=== PATIENT | female | born 1945 | race Hispanic/Latino ===

== ENCOUNTER 2018-02-12 11:24 | Inpatient (IN) | payer OTHER, MEDICARE ==
--- NOTE | 2018-02-12 11:49 | ED PDOC ---
Arrival/HPI - General Time Seen by Provider: 02/12/18 11:28 Historian: Patient - History of Present Illness Narrative History of Present Illness (Text): 02/12/18 11:41 72 year old female, whose history includes 2 stents placed three years ago and a completely blocked right vertebral artery, back surgery, small intestine surgery, and volvulus, complaining of a near syncopal episode at 09:50 that lasted approximately 2 minutes. Patient was walking when she felt lightheaded, lost vision, and lowered herself down to the ground. Patient also complains of pain to her upper back, left shoulder, and across chest since waking up this morning. Patient denies any fever, chills, shortness of breath, nausea, vomiting , diarrhea, urinary symptoms, headache, or any other complaints. As per significant other, patient also had an episode of right sided weakness and right arm shaking 3 days ago that lasted 2 minutes. Time/Duration: 1-3 hours Symptom Onset: Sudden Symptom Course: Unchanged Activities at Onset: Light Context: Home Past Medical History - Provider Review Nursing Documentation Reviewed: Yes Family/Social History - Physician Review Nursing Documentation Reviewed: Yes Family/Social History: Unknown Family HX Allergies/Home Meds Allergies/Adverse Reactions: Allergies No Known Allergies Allergy (Verified 02/12/18 11:31) Home Medications: Home Meds Medication Instructions Recorded Confirmed Unobtainable 02/12/18 02/12/18 Review of Systems - Physician Review All systems were reviewed & negative as marked: Yes - Review of Systems Constitutional: absent: Fevers, Night Sweats Eyes: Vision Changes (loss of vision for 2 minutes) Respiratory: absent: SOB Cardiovascular: Chest Pain Gastrointestinal: absent: Diarrhea, Nausea, Vomiting Genitourinary Female: absent: Dysuria Musculoskeletal: Back Pain Neurological: Dizziness, Other (near syncope). absent: Headache Physical Exam Vital Signs Reviewed: Yes Vital Signs Temp Pulse Resp BP Pulse Ox 02/12/18 14:35 64 17 165/71 H 94 L 02/12/18 12:25 58 L 18 124/68 96 02/12/18 11:25 97.8 F 67 18 121/41 L 99 Temperature: Afebrile Blood Pressure: Hypotensive Pulse: Regular Respiratory Rate: Normal Appearance: Positive for: Well-Appearing, Non-Toxic, Comfortable Pain Distress: None Mental Status: Positive for: Alert and Oriented X 3 - Systems Exam Head: Present: Atraumatic, Normocephalic Pupils: Present: PERRL Extroacular Muscles: Present: EOMI Conjunctiva: Present: Normal Mouth: Present: Moist Mucous Membranes Neck: Present: Normal Range of Motion Respiratory/Chest: Present: Clear to Auscultation, Good Air Exchange. No: Respiratory Distress, Accessory Muscle Use Cardiovascular: Present: Regular Rate and Rhythm, Normal S1, S2. No: Murmurs Abdomen: No: Tenderness, Distention, Peritoneal Signs Back: Present: Normal Inspection Upper Extremity: Present: Normal Inspection. No: Cyanosis, Edema Lower Extremity: Present: Normal Inspection. No: Edema Neurological: Present: GCS=15, CN II-XII Intact, Speech Normal Skin: Present: Warm, Dry, Normal Color. No: Rashes Psychiatric: Present: Alert, Oriented x 3, Normal Insight, Normal Concentration Medical Decision Making ED Course and Treatment: 02/12/18 11:52 Impression: 72 year old female presents to the Emergency Department complaining of a near syncopal episode with associated lightheadedness, temporary loss of vision, chest pain, upper back pain, and left shoulder pain. Plan: -- CTA head and neck bundle, Head CT without contrast -- Chest xray -- EKG -- Plavix, Morphine, Zofran, and Sodium Chloride IV fluids -- Reassess and disposition Progress Notes: 02/12/18 15:08 Discussed case in detail with Dr. Dela Cruz, covering for Dr. Ivan, who wants the patient admitted to the hospitalist. 02/12/18 15:13 Discussed case in detail with Dr. Uriostegui who requested a consult with Dr. Knutson for admittance to telemetry and observation. - Lab Interpretations Lab Results: 02/12/18 12:00 02/12/18 12:00 Lab Results 02/12/18 12:00: Sodium 142, Potassium 3.8, Chloride 108 H, Carbon Dioxide 23, Anion Gap 14, BUN 13, Creatinine 0.8, Est GFR ( Amer) > 60, Est GFR (Non- Af Amer) > 60, Random Glucose 111 H, Calcium 9.3, Total Bilirubin 0.3, AST 20, ALT 24, Alkaline Phosphatase 52, Lactate Dehydrogenase 287 L, Total Creatine Kinase 51, Troponin I < 0.01, NT-Pro-B Natriuret Pep 445, Total Protein 6.5, Albumin 3.7, Globulin 2.8, Albumin/Globulin Ratio 1.3, Lipase 38 02/12/18 12:00: PT 12.4, INR 1.08 02/12/18 12:00: WBC 8.1, RBC 3.92, Hgb 12.7, Hct 37.5, MCV 95.7, MCH 32.4, MCHC 33.9, RDW 14.1, Plt Count 299, MPV 9.0, Gran % 75.0 H, Lymph % (Auto) 16.0 L, Stewart % (Auto) 7.6 H, Eos % (Auto) 0.9 L, Baso % (Auto) 0.5, Gran # 6.10, Lymph # (Auto) 1.3, Stewart # (Auto) 0.6, Eos # (Auto) 0.1, Baso # (Auto) 0.04 - RAD Interpretation Narrative RAD Interpretations (Text): 02/12/2018 12:41:33 Chest X-ray: FINDINGS: LUNGS: No focal infiltrate is appreciated. There is a small nodular density seen at the right lung base which may represent nipple shadow. No prior studies are available for comparison. Follow-up PA and lateral view of the chest would be suggested for further evaluation. Minor apical pleural changes are noted. Minor interstitial changes and/or scarring is seen at the lung bases. PLEURA: No significant pleural effusion identified, no pneumothorax apparent. CARDIOVASCULAR: Heart is normal in size. There is mild calcific atherosclerotic change of the aorta without aneurysmal dilatation. No hilar enlargement is seen. Trachea is midline. OSSEOUS STRUCTURES: No significant abnormalities. VISUALIZED UPPER ABDOMEN: Normal. OTHER FINDINGS: None. IMPRESSION: No evidence of focal alveolar infiltrate. Nonspecific mild nodular density in the right lung base which may reflect nipple shadow and confluence of overlapping densities. Follow-up PA lateral view of the chest is suggested. 02/12/2018 13:58:13 PROCEDURE: CT HEAD WITHOUT CONTRAST. FINDINGS: HEMORRHAGE: No intracranial hemorrhage. BRAIN: No mass effect or edema. Mild diffuse age related cerebral atrophy. No cortical effacement seen. Note tear tore area of infarct identified. Minor small vessel changes are suspected in the white matter tracts. VENTRICLES: Unremarkable. No hydrocephalus. CALVARIUM: Unremarkable. PARANASAL SINUSES: Minor mucosal thickening. MASTOID AIR CELLS: Unremarkable as visualized. No inflammatory changes. OTHER FINDINGS: None. IMPRESSION: No evidence of recent infarct or intracranial hemorrhage. Mild age related changes. 02/12/2018 14:31:17 PROCEDURE: CT Angiography of the neck and head with contrast FINDINGS: RIGHT CAROTID ARTERIES: Common Carotid Artery: There is normal branch pattern of the aortic arch. Right common carotid artery origin is normal. Right common carotid artery is patent to the carotid bifurcation region. Carotid Bifurcation: The right carotid bifurcation region as evidence of moderate atherosclerotic plaque with moderate luminal narrowing of the carotid bulb region. Internal Carotid Artery:There is moderate narrowing of the origin of the right internal carotid artery. Greatest luminal narrowing is 2.5 millimeters. Utilizing NASCET criteria there appears to be a 70 percent luminal narrowing. There is patent flow to the remainder of the right internal carotid artery to its intracranial region. External Carotid Artery (proximal branches): Milder atherosclerotic narrowing of the right external carotid artery. LEFT CAROTID ARTERIES: Common Carotid Artery: Mild atherosclerotic changes are seen in the left common carotid artery although it is widely patent. Carotid Bifurcation: This milder atherosclerotic plaque seen in the left carotid bulb when compare with the right. Mild luminal narrowing is seen. Internal Carotid Artery:There is mild narrowing of the origin of the right internal carotid artery. There is less than 30 percent luminal narrowing by NASCET criteria. There is patent flow of the remainder of the left internal carotid artery to its intracranial portion. External Carotid Artery (proximal branches): Mild atherosclerotic narrowing. 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 There appears to be a small amount of possible reconstitution and/or flow within the proximal right intracranial vertebral artery. Left Vertebral Artery: Left vertebral artery is patent along its entire length with mild atherosclerotic narrowing at its origin. OTHER FINDINGS: CTA of the brain There is patent flow seen within both intracranial internal carotid artery's with mild atherosclerotic plaque. 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 Basilar artery is patent, and fed primarily from the left vertebral artery with the exclusion of the right vertebral artery previously noted above. Left posterior cerebral artery and right posterior cerebral arteries appear patent. Middle cerebral arteries and anterior cerebral arteries are patent. A1 segments and A2 segments are patent. No enhancing mass lesion is seen. No appreciable aneurysm is noted. Mild mucosal changes are seen in the sinuses. Retro-orbital regions are unremarkable. Other incidental findings would include severe emphysematous and interstitial fibrotic changes of the upper lobes and lung apices with chronic pleural parenchymal changes. No intimal flap is seen in the aorta. Visualized esophagus is unremarkable. Thyroid gland is unremarkable. No appreciable adenopathy is seen in the neck. Posterior nasopharynx and tongue base region are within normal limits. Degenerative changes are seen throughout the cervical spine region with moderate posterior disc osteophyte complexes from C4-5 through C6-7. Minimal anterior listhesis is seen at C7-T1. 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 This would appear to probably represent chronic long-standing occlusion. Left vertebral artery is patent along its entire length without stenosis. Unremarkable CTA of the brain. Moderate atherosclerotic narrowing of the right carotid bulb and proximal right ICA with estimated 70 percent luminal narrowing. Radiology Orders: 02/12/18 11:52 CTA HEAD & NECK BUNDLE [CT] Stat HEAD W/O CONTRAST [CT] Stat CHEST PORTABLE [RAD] Stat - EKG Interpretation EKG Interpretation (Text): 02/12/18 11:27 EKG: Ordered, reviewed, and independently interpreted the EKG. Rate : 63 BPM Rhythm : NSR Interpretation : Short TX. Interpreted by ED Physician: Yes Type: 12 lead EKG - Medication Orders Current Medication Orders: Pantoprazole Sodium (Protonix Inj) 40 mg IVP DAILY HEATHER Discontinued Medications Clopidogrel Bisulfate (Plavix) 300 mg PO STAT STA Stop: 02/12/18 11:53 Last Admin: 02/12/18 12:12 Dose: 300 mg Sodium Chloride (Sodium Chloride 0.9%) 1,000 mls @ 999 mls/hr IV .Q1H1M STA Stop: 02/12/18 12:52 Last Admin: 02/12/18 12:12 Dose: 999 mls/hr eMAR Start Stop Document 02/12/18 12:12 SRE (Rec: 02/12/18 12:12 SRE [id number]) Intravenous Solution Start Date 02/12/18 Start Time 12:12 End Date 02/12/18 End time 13:15 Total Infusion Time 63 Morphine Sulfate (Morphine) 4 mg IVP STAT STA Stop: 02/12/18 11:53 Last Admin: 02/12/18 12:11 Dose: 4 mg MAR Pain Assessment Document 02/12/18 12:11 SRE (Rec: 02/12/18 12:12 SRE [id number]) Pain Reassessment Is this a pain reassessment? Yes Sleep Is patient sleeping during reassessment? No Presence of Pain Presence of Pain Yes IVP Administration Document 02/12/18 12:11 SRE (Rec: 02/12/18 12:12 SRE [id number]) Charges for Administration # of IVP Administrations 1 Re-Assess: MAR Pain Assessment Document 02/12/18 13:11 SRE (Rec: 02/12/18 13:25 SRE [id number]) Pain Reassessment Is this a pain reassessment? Yes Sleep Is patient sleeping during reassessment? No Presence of Pain Presence of Pain Yes Pain Scale Used Pain Scale Used Numeric Location Left, Right or Bilateral Left Pain Location Body Site Shoulder Description Description Intermittent Ondansetron HCl (Zofran Inj) 4 mg IVP STAT STA Stop: 02/12/18 11:53 Last Admin: 02/12/18 12:11 Dose: 4 mg IVP Administration Document 02/12/18 12:11 SRE (Rec: 02/12/18 12:11 SRE [id number]) Charges for Administration # of IVP Administrations 1 - Scribe Statement The provider has reviewed the documentation as recorded by the Dawson Landeros Provider Scribe Attestation: All medical record entries made by the Scribe were at my direction and personally dictated by me. I have reviewed the chart and agree that the record accurately reflects my personal performance of the history, physical exam, medical decision making, and the department course for this patient. I have also personally directed, reviewed, and agree with the discharge instructions and disposition. Disposition/Present on Arrival - Present on Arrival Any Indicators Present on Arrival: No History of DVT/PE: No History of Uncontrolled Diabetes: No Urinary Catheter: No History of Decub. Ulcer: No History Surgical Site Infection Following: None - Disposition Have Diagnosis and Disposition been Completed?: Yes Diagnosis: Near syncope, Chest pain Disposition: HOSPITALIZED Disposition Time: 15:22 Patient Plan: Admission, Telemetry Condition: FAIR Discharge Instructions (ExitCare): Chest Pain (ED)
[2018-02-12] MEDS ORDERED: Morphine 4 mg/ml ISec IVP STA (11:52)
[2018-02-12] MEDS ORDERED: Sodium Chloride 0.9% 1,000 ML IV STA (11:52)
[2018-02-12 12:19] LABS: BASO # 0.04 K/mm3 (0.0-2.0); BASO % 0.5 % (0.0-3.0); EOS # 0.1 (0.0-0.7); EOS % 0.9 % (1.5-5.0); GRAN # 6.1 (1.4-6.5); HEMOGLOBIN 12.7 g/dL (12.0-16.0); LYMPH # 1.3 (1.2-3.4); MEAN CELL VOLUME 95.7 fl (80.0-105.0); MEAN CORPUSCULAR HEMOGLOBIN 32.4 pg (25.0-35.0); MEAN CORPUSCULAR HGB CONC 33.9 g/dl (31.0-37.0); MONO # 0.6 (0.1-0.6); MONO % 7.6 % (1.0-6.0); RBC 3.92 10^6/uL (3.5-6.1); RED CELL DISTRIBUTION WIDTH 14.1 % (11.5-14.5); WHITE BLOOD COUNT 8.1 10^3/ul (4.5-11.0)
[2018-02-12 12:23] LABS: PROTHROMBIN TIME 12.4 SECONDS (9.4-12.5)
[2018-02-12 12:24] LABS: INR 1.08 (0.93-1.08)
[2018-02-12 12:27] LABS: ALB/GLOB RATIO 1.3 (1.1-1.8); ALBUMIN 3.7 g/dL (3.0-4.8); ALT/SGPT 24 U/L (7-56); AST/SGOT 20 U/L (14-36); BLOOD UREA NITROGEN 13 mg/dL (7-21); CALCIUM 9.3 mg/dL (8.4-10.5); GFR AFRICAN-AMERICAN > 60; GFR NON-AFRICAN AMERICAN > 60; LIPASE 38 U/L (23-300)
[2018-02-12 12:39] LABS: B-TYPE NATRIURETIC PEPTIDE 445 pg/mL (0-450); TROPONIN I < 0.01 ng/mL
--- NOTE | 2018-02-12 12:43 | RAD ---
HISTORY: chest pain COMPARISON: No prior. FINDINGS: LUNGS: No focal infiltrate is appreciated. There is a small nodular density seen at the right lung base which may represent nipple shadow. No prior studies are available for comparison. Follow-up PA and lateral view of the chest would be suggested for further evaluation. Minor apical pleural changes are noted. Minor interstitial changes and/or scarring is seen at the lung bases. PLEURA: No significant pleural effusion identified, no pneumothorax apparent. CARDIOVASCULAR: Heart is normal in size. There is mild calcific atherosclerotic change of the aorta without aneurysmal dilatation. No hilar enlargement is seen. Trachea is midline. OSSEOUS STRUCTURES: No significant abnormalities. VISUALIZED UPPER ABDOMEN: Normal. OTHER FINDINGS: None. IMPRESSION: No evidence of focal alveolar infiltrate. Nonspecific mild nodular density in the right lung base which may reflect nipple shadow and confluence of overlapping densities. Follow-up PA lateral view of the chest is suggested.
[2018-02-12] MEDS ORDERED: Morphine 4 mg/ml ISec ONE (13:00)
[2018-02-12] MEDS ORDERED: Iohexol 350 MG/100 ML VIAL ONE (13:18)
--- NOTE | 2018-02-12 13:59 | CT ---
PROCEDURE: CT HEAD WITHOUT CONTRAST. HISTORY: Near Sycope, Blocked Right Vertebral Artery COMPARISON: None available. TECHNIQUE: Axial computed tomography images were obtained through the head/brain without intravenous contrast. Radiation dose: Total exam DLP = 906 mGy-cm. This CT exam was performed using one or more of the following dose reduction techniques: Automated exposure control, adjustment of the mA and/or kV according to patient size, and/or use of iterative reconstruction technique. FINDINGS: HEMORRHAGE: No intracranial hemorrhage. BRAIN: No mass effect or edema. Mild diffuse age related cerebral atrophy. No cortical effacement seen. Note tear tore area of infarct identified. Minor small vessel changes are suspected in the white matter tracts. VENTRICLES: Unremarkable. No hydrocephalus. CALVARIUM: Unremarkable. PARANASAL SINUSES: Minor mucosal thickening. MASTOID AIR CELLS: Unremarkable as visualized. No inflammatory changes. OTHER FINDINGS: None. IMPRESSION: No evidence of recent infarct or intracranial hemorrhage. Mild age related changes.
--- NOTE | 2018-02-12 14:33 | CT ---
PROCEDURE: CT Angiography of the neck and head with contrast HISTORY: Near Syncope, Blocked Vertebral Artery on R COMPARISON: CT head without contrast same day. No other prior study is available TECHNIQUE: Contiguous axial images of the neck were obtained from the level of the skull-base to the superior mediastinum in the arteriographic phase of enhancement. Coronal and sagittal reformats or also generated. IV contrast dose: 100 cc Radiation Dose - DLP: 400 mGy-cm This CT exam was performed using one or more of the following dose reduction techniques: Automated exposure control, adjustment of the mA and/or kV according to patient size, and/or use of iterative reconstruction technique. FINDINGS: RIGHT CAROTID ARTERIES: Common Carotid Artery: There is normal branch pattern of the aortic arch. Right common carotid artery origin is normal. Right common carotid artery is patent to the carotid bifurcation region. Carotid Bifurcation: The right carotid bifurcation region as evidence of moderate atherosclerotic plaque with moderate luminal narrowing of the carotid bulb region. Internal Carotid Artery:There is moderate narrowing of the origin of the right internal carotid artery. Greatest luminal narrowing is 2.5 millimeters. Utilizing NASCET criteria there appears to be a 70 percent luminal narrowing. There is patent flow to the remainder of the right internal carotid artery to its intracranial region. External Carotid Artery (proximal branches): Milder atherosclerotic narrowing of the right external carotid artery. LEFT CAROTID ARTERIES: Common Carotid Artery: Mild atherosclerotic changes are seen in the left common carotid artery although it is widely patent. Carotid Bifurcation: This milder atherosclerotic plaque seen in the left carotid bulb when compare with the right. Mild luminal narrowing is seen. Internal Carotid Artery:There is mild narrowing of the origin of the right internal carotid artery. There is less than 30 percent luminal narrowing by NASCET criteria. There is patent flow of the remainder of the left internal carotid artery to its intracranial portion. External Carotid Artery (proximal branches): Mild atherosclerotic narrowing. 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 There appears to be a small amount of possible reconstitution and/or flow within the proximal right intracranial vertebral artery. Left Vertebral Artery: Left vertebral artery is patent along its entire length with mild atherosclerotic narrowing at its origin. OTHER FINDINGS: CTA of the brain There is patent flow seen within both intracranial internal carotid artery's with mild atherosclerotic plaque. 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 Basilar artery is patent, and fed primarily from the left vertebral artery with the exclusion of the right vertebral artery previously noted above. Left posterior cerebral artery and right posterior cerebral arteries appear patent. Middle cerebral arteries and anterior cerebral arteries are patent. A1 segments and A2 segments are patent. No enhancing mass lesion is seen. No appreciable aneurysm is noted. Mild mucosal changes are seen in the sinuses. Retro-orbital regions are unremarkable. Other incidental findings would include severe emphysematous and interstitial fibrotic changes of the upper lobes and lung apices with chronic pleural parenchymal changes. No intimal flap is seen in the aorta. Visualized esophagus is unremarkable. Thyroid gland is unremarkable. No appreciable adenopathy is seen in the neck. Posterior nasopharynx and tongue base region are within normal limits. Degenerative changes are seen throughout the cervical spine region with moderate posterior disc osteophyte complexes from C4-5 through C6-7. Minimal anterior listhesis is seen at C7-T1. 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 This would appear to probably represent chronic long-standing occlusion. Left vertebral artery is patent along its entire length without stenosis. Unremarkable CTA of the brain. Moderate atherosclerotic narrowing of the right carotid bulb and proximal right ICA with estimated 70 percent luminal narrowing.
--- NOTE | 2018-02-12 15:21 | CP.PCM.HP ---
History of Present Illness - History of Present Illness History of Present Illness: H&P for HospitalistElroy PGY2 This is a 72yo female with past medical history of CAD s/p 2 stents, vertebral artery stenosis (complete occlusion), carotid stenosis, volvulus s/p repair who came to ED for near syncopal episode that lasted a few minutes. Patient reports she was walking when all of a sudden she felt dizzy and had blurry vision in both eyes that resolved on its own. She did not fall or hit her head. She states that this has happened several times in the past. She denies numbness/ tingling, fever/chills, weakness, nausea/vomiting/diarrhea, or shortness of breath. She is seeing doctors at [facility] for these symptoms. Patient states its secondary to her vertebral artery stenosis and had an MRA recently. She denies taking Plavix at home. Patient said she had an echo and chemical stress test last week by her Team Guide and reports it was negative. Patient states she has chest pain that actually originates in her mid thoracic region and radiates around to her chest. The pain is intermittent and she denies trauma. Past medical history: CAD s/p 2 stents, vertebral artery stenosis (complete occlusion), carotid stenosis, volvulus Past surgical history: Volvulus repair, multiple back surgeries, appendectomy Home meds: ASA, Lipitor, Celexa, Vitamins (unknown dosages) Allergies: NKDA Social history: Lives with family. smokes 1/2 ppd x 15yrs, denies EtOH or drug use. Independent in all ADLs Family history: Mom: Cardiac- unsure what kind PMD: Dr. Owen Team Guide: Dr. Huddleston Most physicians seen at [facility] Present on Admission - Present on Admission Any Indicators Present on Admission: No Review of Systems - Review of Systems All systems: reviewed and no additional remarkable complaints except Review of Systems: 12 point ROS reviewed as per HPI Past Patient History - Past Social History Smoking Status: Heavy Smoker > 10 Cigarettes Daily Alcohol: None Drugs: Denies Home Situation {Lives}: With Family - NEUROLOGICAL Other/Comment: L vertebral stenosis - HEENT Hx Cataracts: Yes (ou) - PSYCHIATRIC Hx Anxiety: Yes Hx Substance Use: No Meds Allergies/Adverse Reactions: Allergies Allergy/AdvReac Type Severity Reaction Status Date / Time No Known Allergies Allergy Verified 02/12/18 11:31 Physical Exam - Constitutional Appears: No Acute Distress - Head Exam Head Exam: ATRAUMATIC, NORMAL INSPECTION, NORMOCEPHALIC - Eye Exam Eye Exam: Normal appearance, PERRL Pupil Exam: NORMAL ACCOMODATION, PERRL - ENT Exam ENT Exam: Mucous Membranes Moist - Neck Exam Neck exam: Positive for: Normal Inspection - Respiratory Exam Respiratory Exam: Clear to Auscultation Bilateral, NORMAL BREATHING PATTERN. absent: Rales, Rhonchi, Wheezes - Cardiovascular Exam Cardiovascular Exam: REGULAR RHYTHM, +S1, +S2. absent: Gallop, Rubs, Systolic Murmur - GI/Abdominal Exam GI & Abdominal Exam: Normal Bowel Sounds, Soft. absent: Rebound, Rigid, Tenderness - Extremities Exam Extremities exam: Positive for: normal inspection. Negative for: calf tenderness, pedal edema - Back Exam Back exam: paraspinal tenderness (on upper thoracic T3-T5) - Neurological Exam Neurological exam: Alert, CN II-XII Intact, Normal Gait, Oriented x3 - Psychiatric Exam Psychiatric exam: Normal Affect, Normal Mood - Skin Skin Exam: Dry, Intact, Normal Color, Warm Results - Vital Signs Recent Vital Signs: Last Vital Signs Temp 97.8 F 02/12/18 11:25 Pulse 64 02/12/18 14:35 Resp 17 02/12/18 14:35 BP 165/71 H 02/12/18 14:35 Pulse Ox 94 L 02/12/18 14:35 - Labs Result Diagrams: 02/12/18 12:00 02/12/18 12:00 Labs: Laboratory Results - last 24 hr 02/12/18 02/12/18 02/12/18 12:00 12:00 12:00 WBC 8.1 RBC 3.92 Hgb 12.7 Hct 37.5 MCV 95.7 MCH 32.4 MCHC 33.9 RDW 14.1 Plt Count 299 MPV 9.0 Gran % 75.0 H Lymph % (Auto) 16.0 L [place] % (Auto) 7.6 H Eos % (Auto) 0.9 L Baso % (Auto) 0.5 Gran # 6.10 Lymph # (Auto) 1.3 [place] # (Auto) 0.6 Eos # (Auto) 0.1 Baso # (Auto) 0.04 PT 12.4 INR 1.08 Sodium 142 Potassium 3.8 Chloride 108 H Carbon Dioxide 23 Anion Gap 14 BUN 13 Creatinine 0.8 Est GFR ( Amer) > 60 Est GFR (Non-Af Amer) > 60 Random Glucose 111 H Calcium 9.3 Total Bilirubin 0.3 AST 20 ALT 24 Alkaline Phosphatase 52 Lactate Dehydrogenase 287 L Total Creatine Kinase 51 Troponin I < 0.01 NT-Pro-B Natriuret Pep 445 Total Protein 6.5 Albumin 3.7 Globulin 2.8 Albumin/Globulin Ratio 1.3 Lipase 38 Assessment & Plan - Assessment and Plan (Free Text) Assessment: This is a 72yo female with past medical history of CAD s/p 2 stents, vertebral artery stenosis (complete occlusion), carotid stenosis, volvulus s/p repair who was admitted for near syncopal episode which can be secondary to vertebral artery disease. Plan: 1. Pre- syncope - secondary to vertebral artery stenosis - CTA showed occlusion of the right vertebral artery along its entire cervical length as has been reported in the patient's history. This would appear to probably represent chronic long-standing occlusion. Left vertebral artery is patent along its entire length without stenosis. Unremarkable CTA of the brain. Moderate atherosclerotic narrowing of the right carotid bulb and proximal right ICA with estimated 70 percent luminal narrowing. - Head CT showed mild chronic changes- no acute abnormalities - Neuro consulted - Patient given ASA and Plavix in ED - Continue ASA and Lipitor - Echo and stress test done last week at [facility]- will obtain full report - Cardio consulted - Patient had MRA recently at [facility] 2. Chest pain - most likely secondary to back pain, but will rule out ACS due to history of CAD - EKG showed NSR - CXR showed no active disease - Troponin <0.01- will trend - Will check TSH, Lipid panel - Will obtain CT thoracic spine - Toradol prn pain 3. Tobacco abuse - Switch Inspector on smoking cessation - Nicotine patch 4. Hx of CAD - ASA, Lipitor - Recommend starting Plavix as outpatient GI ppx: Protonix DVT ppx: SCDs Case seen, discussed and reviewed with attending Elroy Villalobos PGY2 - Date & Time Date: 02/12/18 Time: 16:12
[2018-02-12 16:23] VITALS: BMI 19.5
--- NOTE | 2018-02-12 17:04 | CP.PCM.CON ---
History of Present Illness - History of Present Illness History of Present Illness: Mrs. Tavia Johnson is a 72-year-old woman with a past medical history of CAD s/p 2 stents, vertebral artery stenosis (complete occlusion), carotid stenosis, volvulus s/p repair who came to ED for after experiencing a brief episode of light-headedness, dizziness and blurry vision, not unlike her previous symptoms , which she has been worked up for at [facility]. She was to be scheduled for a diagnostic cerebral angiogram. She is on aspirin for stroke prevention. Last week, she had an MRA done that showed right vertebral artery occlusion from the origin that appeared chronic. She follows with Dr. Mekhi Espinoza for neurointerventional and is supposed to see him next week. Review of Systems - Review of Systems All systems: reviewed and no additional remarkable complaints except Past Patient History - Past Social History Smoking Status: Light Smoker < 10 Cigarettes Daily - NEUROLOGICAL Other/Comment: L vertebral stenosis - HEENT Hx Cataracts: Yes (ou) - MUSCULOSKELETAL/RHEUMATOLOGICAL Hx Falls: No - PSYCHIATRIC Hx Anxiety: Yes - SURGICAL HISTORY Hx Appendectomy: Yes Hx Coronary Stent: Yes Hx Orthopedic Surgery: Yes (Back SX) Other/Comment: Breast implants, sm intestine SX Meds Allergies/Adverse Reactions: Allergies Allergy/AdvReac Type Severity Reaction Status Date / Time No Known Allergies Allergy Verified 02/12/18 11:31 - Medications Medications: Current Medications Aspirin (Aspirin Chewable) 81 mg PO DAILY [facility] Atorvastatin Calcium (Lipitor) 40 mg PO DIN [facility] Ibuprofen (Motrin Tab) 600 mg PO Q6H PRN PRN Reason: Pain, moderate (4-7) Ketorolac Tromethamine (Toradol) 15 mg IVP Q8H PRN PRN Reason: Pain, severe (8-10) Nicotine (Nicoderm Cq) 1 patch TD DAILY [facility] Pantoprazole Sodium (Protonix Inj) 40 mg IVP DAILY [facility] Physical Exam - Neurological Exam Neurological exam: Alert, CN II-XII Intact, Normal Gait, Oriented x3, Reflexes Normal Results - Vital Signs Recent Vital Signs: Last Vital Signs Temp 97.8 F 02/12/18 11:25 Pulse 64 02/12/18 16:17 Resp 18 02/12/18 16:17 BP 165/71 H 02/12/18 16:17 Pulse Ox 94 L 02/12/18 14:35 - Labs Result Diagrams: 02/12/18 12:00 02/12/18 12:00 Assessment & Plan (1) Near syncope Assessment and Plan: 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 I recommend the followin. Telemetry 2. CTA of the head/neck 3. Load with Plavix 300 mg once and continue dual antiplatlet therapy with aspirin 81 mg daily and Plavix 75 mg daily, follow up with Dr. Mekhi Espinoza at [facility], if medically stable for discharge. 4. Fluids with NS at 100 mL/hr for 24 hours and continue oral hydration with at least 2-3 liters of water daily. 5. Permissive HTN for the next 24 hours (only treat BP that is higher than 220/ 110 mm Hg) 6. PT/OT eval and treatment 7. Echocardiogram 8. Case management consult Thank you. Status: Acute Priority: High
[2018-02-12 18:25] LABS: URINE BILIRUBIN NEGATIVE (NEGATIVE); URINE BLOOD TRACE-INTACT (NEGATIVE); URINE GLUCOSE (UA) NEGATIVE (NEGATIVE); URINE LEUKOCYTE ESTERASE NEGATIVE Leu/uL (NEGATIVE); URINE PROTEIN NEGATIVE mg/dL (<30 mg/dL); URINE UROBILINOGEN 0.2 E.U./dL (<1 E.U./dL)
[2018-02-12 18:27] LABS: URINE APPEARANCE CLEAR (CLEAR); URINE COLOR YELLOW (YELLOW)
[2018-02-12 18:30] LABS: URINE BACTERIA FEW (NEG); URINE RBC 0 - 2 /hpf (0-2)
[2018-02-12] MEDS ORDERED: Enoxaparin 60 mg Syringe SC STA (18:41)
[2018-02-12 18:51] LABS: TROPONIN I 0.73 ng/mL
--- NOTE | 2018-02-12 22:40 | CARD ---
APPROVED REPORT EKG Measurement Heart [id number] <Conclusion> Poor data quality, interpretation may be adversely affected Sinus rhythm with short MS Otherwise normal ECG
[2018-02-13 07:36] LABS: BASO # 0.04 K/mm3 (0.0-2.0); BASO % 0.5 % (0.0-3.0); EOS # 0.2 (0.0-0.7); EOS % 2.2 % (1.5-5.0); GRAN # 4.68 (1.4-6.5); HEMOGLOBIN 13.9 g/dL (12.0-16.0); LYMPH # 2.1 (1.2-3.4); LYMPH % 27.4 % (22.0-35.0); MEAN CORPUSCULAR HEMOGLOBIN 32.6 pg (25.0-35.0); MEAN CORPUSCULAR HGB CONC 33.9 g/dl (31.0-37.0); MEAN PLATELET VOLUME 9.2 fl (7.0-11.0); MONO # 0.6 (0.1-0.6); MONO % 7.9 % (1.0-6.0); RBC 4.27 10^6/uL (3.5-6.1); RED CELL DISTRIBUTION WIDTH 14.1 % (11.5-14.5); WHITE BLOOD COUNT 7.6 10^3/ul (4.5-11.0)
[2018-02-13 07:47] LABS: ALB/GLOB RATIO 1.3 (1.1-1.8); ALBUMIN 3.9 g/dL (3.0-4.8); ALT/SGPT 20 U/L (7-56); AST/SGOT 26 U/L (14-36); BLOOD UREA NITROGEN 12 mg/dL (7-21); CALCIUM 9.3 mg/dL (8.4-10.5); GFR AFRICAN-AMERICAN > 60; GFR NON-AFRICAN AMERICAN > 60
--- NOTE | 2018-02-13 08:45 | RAD ---
HISTORY: Chest pain. COMPARISON: February 12, 2018. 12:02. FINDINGS: LUNGS: Increase pulmonary/interstitial markings compared to the prior study. PLEURA: Small bilateral pleural effusions. CARDIOVASCULAR: No significant interval change compared to the prior examination(s). OSSEOUS STRUCTURES: No significant abnormalities. VISUALIZED UPPER ABDOMEN: Normal. OTHER FINDINGS: None. IMPRESSION: Increased interstitial edema.
--- NOTE | 2018-02-13 09:12 | CT ---
PROCEDURE: CT Thoracic Spine without contrast HISTORY: back pain COMPARISON: None. TECHNIQUE: Axial computed tomography images were obtained of the thoracic spine without intravenous contrast. Coronal and sagittal reformatted images were created and reviewed. Radiation dose: Total exam DLP = 241 mGy-cm. This CT exam was performed using one or more of the following dose reduction techniques: Automated exposure control, adjustment of the mA and/or kV according to patient size, and/or use of iterative reconstruction technique. FINDINGS: VERTEBRAE: Unremarkable. No fracture. Normal alignment. DISCS/SPINAL CANAL/NEURAL FORAMINA: Within the limits of the CT technique, no disc herniation seen. No central canal or neural foraminal stenosis.. PARASPINAL SOFT TISSUES: Unremarkable. Severe emphysematous changes are seen. There is some focal consolidation at the left lung base. Evaluation of the chest is incomplete on this thoracic spine exam. A dedicated chest CT may be indicated OTHER FINDINGS: The report concurs with the preliminary [facility] report. IMPRESSION: No acute vertebral compression fracture
[2018-02-13] MEDS ORDERED: Lidocaine 2% Inj (20ml) ONE (09:30)
[2018-02-13] MEDS ORDERED: Verapamil 2 ML ONE (09:31)
[2018-02-13] MEDS ORDERED: Nitroglycerin 50mg in D5W 50 MG/250 ML BOTTLE IV ONE (09:31)
[2018-02-13] MEDS ORDERED: Phenylephrine 10 mg/ml Inj ONE (09:31)
[2018-02-13] MEDS ORDERED: Iohexol 350mgl/ml 50 ML ONE (09:31)
[2018-02-13] MEDS ORDERED: Midazolam 2 MG/2 ML VIAL ONE ×2 (09:51→10:42)
[2018-02-13] MEDS ORDERED: Eptifibatide 20 mg/10mL Inj IVP ONE (10:25)
[2018-02-13] MEDS ORDERED: Iohexol 350 MG/100 ML VIAL ONE (10:37)
[2018-02-13] MEDS ORDERED: Morphine 4 mg/ml ISec ONE (10:46)
[2018-02-13] MEDS ORDERED: Sodium Chloride 0.9% 1,000 ML IV SCH (11:15)
--- NOTE | 2018-02-13 12:07 | CPOSTOP ---
DATE: 02/13/2018 PHYSICIAN: Luis Antonio Del Angel MD. BINGO CALLER: KEYANA Amezquita. TYPE OF ANESTHESIA USED: Moderate conscious sedation. Total dose given 3 mg of Versed, 100 of fentanyl, and 2 of morphine periodically, started at 1 mg of Versed, 50 of fentanyl. PRE-PROCEDURE DIAGNOSES: Unstable angina, [id number] myocardial infarction. PROCEDURES PERFORMED: 1. Left heart catheterization. 2. Stenting of circumflex, dominant. FINDINGS: Circumflex, dominant distal 90% to 95% stenosis, patent stent in LAD, moderate disease in RCA nondominant. FINAL DIAGNOSIS: Single-vessel critical disease, circumflex. POSTPROCEDURE CONDITION: Stable, good. VASCULAR ACCESS SITE: Left radial. CLOSURE DEVICE: TR band. RADIATION DOSE TOTAL: 8209.96 mGy unit total. FLUORO TIME: 6.9 minutes. RECOMMENDATIONS: Mandatory aspirin and Plavix for one year. Luis Antonio Del Angel MD
--- NOTE | 2018-02-13 12:57 | CON ---
DATE: 02/13/2018 REASON FOR THE CONSULTATION: Followup [id number] myocardial infarction, acute coronary syndrome, history of coronary artery disease. Admitted with near syncope and chest pain and positive troponin. BRIEF CLINICAL HISTORY: This is a 72-year-old female with past medical history significant for coronary artery disease, status post stent 4 years ago at [facility]; history of dizziness; history of near syncope; history of vertebral artery stenosis, complete occlusion, being followed at [facility]. While the patient was discharged, has a near syncopal episode. While the patient came to the emergency room with severe chest pain and positive troponin, EKG remains normal. Denies any episode of chest pain now, but she says yesterday she had a very bad chest pain. She felt that she was going to pass out. PAST MEDICAL HISTORY: Past history significant for coronary artery disease, status post 2 stents in the artery; history of vertebral artery stenosis, history of complete occlusion; history of carotid artery stenosis. PAST SURGICAL HISTORY: Significant for volvulus repair, multiple back surgery, appendectomy. SOCIAL HISTORY: Active tobacco abuse. Used to smoke 2 packs a day, but now cut down to half a pack a day. Denies any history of alcohol abuse. Denies any history of any substance abuse. Lives with . CURRENT MEDICATIONS: The patient is taking aspirin, Lipitor, Celexa, vitamins and was taking Plavix, but stopped a year or 2 years ago. REVIEW OF SYSTEMS: As per HPI. PHYSICAL EXAMINATION: As follows, VITAL SIGNS: Temperature afebrile, blood pressure 120/65. HEENT: PERRLA, intact. NECK: Supple. No carotid bruit. No thyromegaly. CHEST: Clear to auscultation. HEART: S1 and S2 regular. ABDOMEN: Soft. EXTREMITIES: Clubbing and cyanosis negative. LABORATORY DATA: Blood workup as follows; WBC 7.6, hemoglobin 13.9, hematocrit 41, platelet count 319. Chemistry shows sodium 141, potassium 4, chloride 107, carbon dioxide 25, anion gap of 13, BUN 12, creatinine 0.8. EKG shows normal sinus rhythm. Acute ST-T changes noted. Troponin 0.73, then 0.58 and 0.48. IMPRESSION: Acute coronary syndrome, [id number] myocardial infarction, coronary artery disease, history of peripheral arterial disease, history of coronary artery occlusion. RECOMMENDATION: We will get echo. We will get cardiac catheterization. Risks, benefits and alternatives discussed with the patient. Proceed for cardiac catheterization. Last night, 300 mg of Plavix was given. We will give this morning Plavix 75 mg daily and aspirin and we will keep n.p.o. for cardiac catheterization. Further recommendations depends on cardiac catheterization. We will also get echo and also get lipid profile, TSH. Also, we will get carotid artery duplex. We will follow with you. Thank you, Dr. Uriostegui for providing us the opportunity in taking care of the patient, Zahraa Squires Alex. Luis Antonio Del Angel MD
--- NOTE | 2018-02-13 13:09 | CP.PCM.PN ---
<Fred Courtney - Last Filed: 02/13/18 13:06> Subjective - Date & Time of Evaluation Date of Evaluation: 02/13/18 Time of Evaluation: 13:06 - Subjective Subjective: Medicine Progress Note Pt seen and examined at bedside. No acute overnight events. Pt states that her symptoms have resolved. No dizziness, SAVAGE, or CP. Pt states that she is already follow doctors at [facility] for her dizziness due to vertebral artery stenosis. Pt denies CP, SOB, n/v/d, abdominal pain, fever, chills, SAVAGE, or dizziness. Objective - Vital Signs/Intake and Output Vital Signs (last 24 hours): Temp Pulse Resp BP Pulse Ox 97.2 F L 54 L 18 144/65 95 02/13/18 12:00 02/13/18 12:00 02/13/18 12:00 02/13/18 12:00 02/13/18 06:00 Intake and Output: 02/13/18 02/13/18 06:59 18:59 Intake Total 0 Balance 0 - Medications Medications: Current Medications Aspirin (Aspirin Chewable) 81 mg PO DAILY [facility] Last Admin: 02/13/18 10:43 Dose: Not Given Atorvastatin Calcium (Lipitor) 40 mg PO DIN [facility] Last Admin: 02/12/18 17:54 Dose: 40 mg Clopidogrel Bisulfate (Plavix) 75 mg PO DAILY [facility] Sodium Chloride (Sodium Chloride 0.9%) 1,000 mls @ 100 mls/hr IV .Q10H [facility] Stop: 02/13/18 18:00 Ibuprofen (Motrin Tab) 600 mg PO Q6H PRN PRN Reason: Pain, moderate (4-7) Ketorolac Tromethamine (Toradol) 15 mg IVP Q8H PRN PRN Reason: Pain, severe (8-10) Last Admin: 02/12/18 22:07 Dose: 15 mg Metoprolol Tartrate (Lopressor) 25 mg PO BID [facility] Nicotine (Nicoderm Cq) 1 patch TD DAILY [facility] Last Admin: 02/13/18 10:44 Dose: Not Given Pantoprazole Sodium (Protonix Inj) 40 mg IVP DAILY [facility] Last Admin: 02/13/18 10:44 Dose: Not Given - Labs Labs: 02/13/18 07:00 02/13/18 07:00 PT 12.4 SECONDS (9.4-12.5) 02/12/18 12:00 INR 1.08 (0.93-1.08) 02/12/18 12:00 - Constitutional Appears: No Acute Distress - Head Exam Head Exam: NORMAL INSPECTION - Eye Exam Eye Exam: Normal appearance - ENT Exam ENT Exam: Mucous Membranes Moist - Neck Exam Neck Exam: Normal Inspection - Respiratory Exam Respiratory Exam: Clear to Ausculation Bilateral. absent: Rales, Rhonchi, Wheezes - Cardiovascular Exam Cardiovascular Exam: RRR, +S1, +S2. absent: Gallop, Rubs, Murmur - GI/Abdominal Exam GI & Abdominal Exam: Soft. absent: Distended, Guarding, Tenderness, Rebound - Rectal Exam Rectal Exam: NORMAL INSPECTION - Extremities Exam Extremities Exam: Full ROM - Back Exam Back Exam: NORMAL INSPECTION - Neurological Exam Neurological Exam: Alert, Awake, CN II-XII Intact, Oriented x3 - Psychiatric Exam Psychiatric exam: Normal Affect, Normal Mood - Skin Skin Exam: Dry, Intact, Normal Color, Warm Assessment and Plan - Assessment and Plan (Free Text) Assessment: This is a 72yo female with past medical history of CAD s/p 2 stents, vertebral artery stenosis (complete occlusion), carotid stenosis, volvulus s/p repair who was admitted for near syncopal episode which can be secondary to vertebral artery disease. Plan: 1. Pre- syncope - secondary to vertebral artery stenosis - CTA showed occlusion of the right vertebral artery along its entire cervical length as has been reported in the patient's history. This would appear to probably represent chronic long-standing occlusion. Left vertebral artery is patent along its entire length without stenosis. Unremarkable CTA of the brain. Moderate atherosclerotic narrowing of the right carotid bulb and proximal right ICA with estimated 70 percent luminal narrowing. - Head CT showed mild chronic changes- no acute abnormalities - Neuro consulted Dual antiplatelet therapy Permissive HTN Recommends outpatient follow up with Dr. Mekhi Espinoza when medically stable for DC - F/u echo - Cardio consulted 2. 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 Hx of CAD - ASA, Lipitor, Lopressor, Plavix GI ppx: Protonix DVT ppx: SCDs Pt seen and discussed in detail with Dr. Espinal. Brenton Courtney, PGY1 <Duglas Espinal - Last Filed: 02/14/18 15:27> Objective - Vital Signs/Intake and Output Vital Signs (last 24 hours): Temp Pulse Resp BP Pulse Ox 97.8 F 63 20 146/66 97 02/14/18 06:00 02/14/18 10:00 02/14/18 06:00 02/14/18 09:22 02/14/18 06:00 - Labs Labs: 02/14/18 05:30 02/14/18 05:30 PT 12.4 SECONDS (9.4-12.5) 02/12/18 12:00 INR 1.08 (0.93-1.08) 02/12/18 12:00 Attending/Attestation - Attestation I have personally seen and examined this patient.: Yes I have fully participated in the care of the patient.: Yes I have reviewed all pertinent clinical information, including history, physical exam and plan: Yes Notes (Text): 02/14/18 15:26 attending note; Patient seen and examined with resident. This is a 72 year old female with past medical history of CAD s/p 2 stents, vertebral artery stenosis (complete occlusion), carotid stenosis, volvulus s/p repair who was admitted for near syncopal episode which can be secondary to vertebral artery disease. CT headis negative and CTA showed vertebral occlusion unchanged. Patient follows up with neurologist at [facility]. Non-ST elevation SD; status post circumflex stent placement. Patient needs aspirin and Plavix for atleast 1 year. active smoking; smoking cessation is strongly advised. Possible discharge home if stable.
--- NOTE | 2018-02-13 14:53 | CARD ---
APPROVED REPORT Procedure(s) performed: Left Heart Catheterization PTCA with Stenting of Mid circumflex with SILVANA HISTORY The patient is a 72 year-old female with a history of : previous diagnostic cath, tobacco history() : The patient is a current smoker , previous PCI (The PCI date was 10/17/2013), dyslipidemia , Hx of Carotid artery stenosis being Followe at [facility], admitted with near syncope and ACS. INDICATION The indication(s) include : unstable angina , non-STEMI , chest pain, dyspnea, syncope. CASE TECHNIQUE The patient was brought urgently to the Cardiac Catheterization Laboratory in a fasting state and was prepped and draped in a sterile manner. The left wrist was infiltrated with 2% Lidocaine subcutaneous anesthesia. A sheath was inserted into the left radial artery without difficulty. Coronary angiography was performed using coronary diagnostic catheters. The left coronary system was accessed and visualized with a Diagnostic ,5F JL 4 CATH DXT 100 CM catheter. The right coronary system was accessed and visualized with a Diagnostic , 5F JR 4 CATH DXT 100 CM catheter. The left ventricle was accessed and visualized with a 5F PIGTAIL 145 CATH DXT 110 CM catheter. Left ventricular/Aortic Valve gradient assessed on pullback. Left ventriculogram was performed in GRAHAM projection. Closure device was deployed with a Fr TR Band (Regular) without any complications. The patient tolerated the procedure well and there were no complications associated with the procedure. Vessel Analysis The patient's coronary anatomy is left dominant. The left main coronary artery is a medium size vessel with diffuse calcification noted throughout this vessel and without significant stenosis. The left main bifurcates to the left anterior descending and circumflex. The left anterior descending artery is a medium size vessel with diffuse calcification noted throughout this vessel and without significant stenosis. patent The first diagonal branch is a small size vessel with diffuse calcification noted throughout this vessel and without significant stenosis. The second diagonal branch is a small size vessel with diffuse calcification noted throughout this vessel and without significant stenosis. The circumflex artery is a large size vessel with diffuse calcification noted throughout this vessel and with significant stenosis. There is a 90-95% stenosis in the distal segment. The first obtuse marginal branch is a small size vessel with diffuse calcification noted throughout this vessel and without significant stenosis. The second obtuse marginal branch is a medium size vessel with diffuse calcification noted throughout this vessel and without significant stenosis. The third obtuse marginal branch is a medium size vessel with diffuse calcification noted throughout this vessel and without significant stenosis. The left posterior descending artery is a medium size vessel with diffuse calcification noted throughout this vessel and without significant stenosis. The right coronary artery is a medium size vessel with diffuse calcification noted throughout this vessel and without significant stenosis. non dominant There is a 40-50% stenosis in the mid segment. Left Ventricle The left ventricle is normal in size with normal contractility. The left ventricular ejection fraction is estimated to be 60-65%. The left ventricular end diastolic pressure is 18 mmHg. There was no gradient across the aortic valve upon pullback. PCI Technique Lesion Anticoagulation was achieved with Heparin. Percutaneous coronary intervention was performed on the distal circumflex artery segment. The lesion stenosis prior to intervention was 90-95% with STAN 2 flow. A 6 Fr JL 3.5 Guide Catheter was used to engage the ostium. A Luge 182 Interventional Guidewire was used to cross the lesion. BALLOON DILATION A Balloon catheter 2.5 x 6 mm Sprinter RX was inserted and inflated up to 15.00atm for 10seconds. STENT DEPLOYMENT A drug-eluting stent STENT RESOLUTE JUAN 2.75 X 08 was inserted and inflated up to 15.00atm for 10seconds. POST STENT DEPLOYMENT BALLOON DILATION A Balloon catheter 2.5 x 6 mm Sprinter RX was inserted and inflated up to juanita for seconds. Final angiography reveals 0 % stenosis with STAN 3 flow. Conclusion Single vessel CAD involving distal dominant Cx 90-95% stenosis. Patent stent in Mid LAD Moderate Diz 40-50% in Mid non Dominant RCA. Preserved LV Fx. EF-60-65%, EDP-18 mmof Hg. Successful PTCA with SILVANA of Distal Circumflex Recommendations Smoking Cessation Cardiac Rehabilitation ReferralDaily ASA with Plavix for at least one year Aggressive Medical TherapyCardiac Risk Reduction Program CC; Dr.Michael Neida MD/ Britni Uriostegui MD
[2018-02-13 16:38] LABS: BASO # 0.05 K/mm3 (0.0-2.0); BASO % 0.8 % (0.0-3.0); EOS # 0.1 (0.0-0.7); EOS % 1.5 % (1.5-5.0); GRAN # 4.09 (1.4-6.5); GRAN % 61.3 % (50.0-68.0); LYMPH # 1.9 (1.2-3.4); LYMPH % 27.8 % (22.0-35.0); MEAN CELL VOLUME 95.8 fl (80.0-105.0); MEAN CORPUSCULAR HEMOGLOBIN 32.2 pg (25.0-35.0); MEAN CORPUSCULAR HGB CONC 33.6 g/dl (31.0-37.0); MONO # 0.6 (0.1-0.6); MONO % 8.6 % (1.0-6.0); RBC 4.04 10^6/uL (3.5-6.1); WHITE BLOOD COUNT 6.7 10^3/ul (4.5-11.0)
[2018-02-13 16:44] LABS: BLOOD UREA NITROGEN 13 mg/dL (7-21); GFR AFRICAN-AMERICAN > 60; GFR NON-AFRICAN AMERICAN 54
[2018-02-13] MEDS ORDERED: Bacitracin 500 Units/gm Oint Foilpak UD ONE (17:00)
--- NOTE | 2018-02-13 19:20 | CP.PCM.PN ---
Subjective - Date & Time of Evaluation Date of Evaluation: 02/13/18 Time of Evaluation: 19:11 - Subjective Subjective: PGY-[address] Espinal CC: "Dont want to go home" Ms Squires, 72yo female, with past medical history of CAD s/p 2 stents, vertebral artery stenosis (complete occlusion), carotid stenosis, volvulus s/p repair who was admitted for near syncopal episode which can be secondary to vertebral artery disease. She had NSTEMI and received a SILVANA stent via L radial access. Pt states that wanted her to go home tonight but she didn't feel ready. Pt states that she is anxious because she did not get the nicoderm patch, because I was asking her why she was anxious, because she didn't like to be questioned (mentioning that her son was a psychiatrist), because she wants anxiety medicine, and because she didnt get any answers for 2 hours, and she just had a procedure today. Denies SAVAGE, CP, SOB, palpitation, N/V. Pt states that she had never tried any psych meds or xanax before. When I re-interview pt , she states that she had tried xanax before in prior hospital stay. O: VS stable GEN: Upset, frustrated HEENT: Moist mucosa Card: regular s1 s2 Pulm: CTA b/l Ext: L radial pulse intact. 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 s/r/d/w Dr. Espinal Objective - Vital Signs/Intake and Output Vital Signs (last 24 hours): Temp Pulse Resp BP Pulse Ox 97.2 F L 73 18 164/70 H 95 02/13/18 12:00 02/13/18 18:00 02/13/18 16:27 02/13/18 17:04 02/13/18 06:00 - Medications Medications: Current Medications Aspirin (Aspirin Chewable) 81 mg PO DAILY [facility] Last Admin: 02/13/18 10:43 Dose: Not Given Atorvastatin Calcium (Lipitor) 40 mg PO DIN [facility] Last Admin: 02/13/18 17:04 Dose: 40 mg Clopidogrel Bisulfate (Plavix) 75 mg PO DAILY [facility] Ibuprofen (Motrin Tab) 600 mg PO Q6H PRN PRN Reason: Pain, moderate (4-7) Ketorolac Tromethamine (Toradol) 15 mg IVP Q8H PRN PRN Reason: Pain, severe (8-10) Last Admin: 02/12/18 22:07 Dose: 15 mg Metoprolol Tartrate (Lopressor) 25 mg PO BID [facility] Last Admin: 02/13/18 17:04 Dose: 25 mg Nicotine (Nicoderm Cq) 1 patch TD DAILY [facility] Last Admin: 02/13/18 18:52 Dose: 1 patch Pantoprazole Sodium (Protonix Inj) 40 mg IVP DAILY [facility] Last Admin: 02/13/18 10:44 Dose: Not Given - Labs Labs: 02/13/18 16:32 02/13/18 16:32 PT 12.4 SECONDS (9.4-12.5) 02/12/18 12:00 INR 1.08 (0.93-1.08) 02/12/18 12:00
--- NOTE | 2018-02-13 20:22 | CARD ---
APPROVED REPORT EKG Measurement Heart [id number] <Conclusion> Sinus bradycardia Possible Left atrial enlargement Borderline ECG
[2018-02-14 06:20] LABS: BASO # 0.04 K/mm3 (0.0-2.0); BASO % 0.5 % (0.0-3.0); EOS # 0.1 (0.0-0.7); EOS % 1.3 % (1.5-5.0); GRAN # 5.95 (1.4-6.5); GRAN % 68.8 % (50.0-68.0); HEMOGLOBIN 13.9 g/dL (12.0-16.0); LYMPH # 1.9 (1.2-3.4); LYMPH % 21.7 % (22.0-35.0); MEAN CELL VOLUME 95.1 fl (80.0-105.0); MEAN CORPUSCULAR HEMOGLOBIN 32.5 pg (25.0-35.0); MEAN CORPUSCULAR HGB CONC 34.2 g/dl (31.0-37.0); MEAN PLATELET VOLUME 9.3 fl (7.0-11.0); MONO # 0.7 (0.1-0.6); MONO % 7.7 % (1.0-6.0); RBC 4.28 10^6/uL (3.5-6.1); WHITE BLOOD COUNT 8.7 10^3/ul (4.5-11.0)
[2018-02-14 06:56] VITALS: RESP 20; TEMP 97.8; O2SAT 97
[2018-02-14 07:46] LABS: ALB/GLOB RATIO 1.3 (1.1-1.8); ALBUMIN 3.9 g/dL (3.0-4.8); ALT/SGPT 26 U/L (7-56); AST/SGOT 28 U/L (14-36); BLOOD UREA NITROGEN 14 mg/dL (7-21); CALCIUM 9.1 mg/dL (8.4-10.5); GFR AFRICAN-AMERICAN > 60; GFR NON-AFRICAN AMERICAN > 60
--- NOTE | 2018-02-14 07:46 | CP.PCM.DIS ---
<Fred Courtney - Last Filed: 02/14/18 11:46> Provider - Provider Date of Admission: 02/13/18 15:09 Attending physician: Shirin Uriostegui MD Consults: Cardio: Bean Neuro: Korya Time Spent in preparation of Discharge (in minutes): 45 Hospital Course - Lab Results Lab Results: Most Recent Lab Values WBC 8.7 10^3/ul (4.5-11.0) D 02/14/18 05:30 RBC 4.28 10^6/uL (3.5-6.1) 02/14/18 05:30 Hgb 13.9 g/dL (12.0-16.0) 02/14/18 05:30 Hct 40.7 % (36.0-48.0) 02/14/18 05:30 MCV 95.1 fl (80.0-105.0) 02/14/18 05:30 MCH 32.5 pg (25.0-35.0) 02/14/18 05:30 MCHC 34.2 g/dl (31.0-37.0) 02/14/18 05:30 RDW 14.0 % (11.5-14.5) 02/14/18 05:30 Plt Count 296 10^3/uL (120.0-450.0) 02/14/18 05:30 MPV 9.3 fl (7.0-11.0) 02/14/18 05:30 Gran % 68.8 % (50.0-68.0) H 02/14/18 05:30 Lymph % (Auto) 21.7 % (22.0-35.0) L 02/14/18 05:30 [place] % (Auto) 7.7 % (1.0-6.0) H 02/14/18 05:30 Eos % (Auto) 1.3 % (1.5-5.0) L 02/14/18 05:30 Baso % (Auto) 0.5 % (0.0-3.0) 02/14/18 05:30 Gran # 5.95 (1.4-6.5) 02/14/18 05:30 Lymph # (Auto) 1.9 (1.2-3.4) 02/14/18 05:30 [place] # (Auto) 0.7 (0.1-0.6) H 02/14/18 05:30 Eos # (Auto) 0.1 (0.0-0.7) 02/14/18 05:30 Baso # (Auto) 0.04 K/mm3 (0.0-2.0) 02/14/18 05:30 PT 12.4 SECONDS (9.4-12.5) 02/12/18 12:00 INR 1.08 (0.93-1.08) 02/12/18 12:00 Sodium 139 mmol/L (132-148) 02/13/18 16:32 Potassium 3.6 mmol/L (3.6-5.0) 02/13/18 16:32 Chloride 106 mmol/L (98-107) 02/13/18 16:32 Carbon Dioxide 23 mmol/L (21-33) 02/13/18 16:32 Anion Gap 14 (10-20) 02/13/18 16:32 BUN 13 mg/dL (7-21) 02/13/18 16:32 Creatinine 1.0 mg/dl (0.7-1.2) 02/13/18 16:32 Est GFR ( Amer) > 60 02/13/18 16:32 Est GFR (Non-Af Amer) 54 02/13/18 16:32 Random Glucose 105 mg/dL (70-110) 02/13/18 16:32 Hemoglobin A1c 5.7 % (4.2-6.5) 02/12/18 17:55 Calcium 9.0 mg/dL (8.4-10.5) 02/13/18 16:32 Total Bilirubin 0.2 mg/dL (0.2-1.3) 02/13/18 07:00 AST 26 U/L (14-36) 02/13/18 07:00 ALT 20 U/L (7-56) 02/13/18 07:00 Alkaline Phosphatase 62 U/L (38-126) 02/13/18 07:00 Lactate Dehydrogenase 287 U/L (333-699) L 02/12/18 12:00 Total Creatine Kinase 51 U/L (35-230) 02/12/18 12:00 Troponin I 0.48 ng/mL H* 02/13/18 02:50 NT-Pro-B Natriuret Pep 445 pg/mL (0-450) 02/12/18 12:00 Total Protein 6.9 g/dL (5.8-8.3) 02/13/18 07:00 Albumin 3.9 g/dL (3.0-4.8) 02/13/18 07:00 Globulin 3.0 gm/dL 02/13/18 07:00 Albumin/Globulin Ratio 1.3 (1.1-1.8) 02/13/18 07:00 Triglycerides 66 mg/dL (35-160) 02/12/18 17:50 Cholesterol 121 mg/dL (130-200) L 02/12/18 17:50 LDL Cholesterol Direct 45 mg/dL (0-129) 02/12/18 17:50 HDL Cholesterol 60 mg/dL (29-60) 02/12/18 17:50 Lipase 38 U/L (23-300) 02/12/18 12:00 TSH 3rd Generation 1.04 mIU/mL (0.46-4.68) 02/12/18 17:55 Urine Color Yellow (YELLOW) 02/12/18 18:10 Urine Appearance Clear (CLEAR) 02/12/18 18:10 Urine pH 6.0 (4.7-8.0) 02/12/18 18:10 Ur Specific [place] 1.010 (1.005-1.035) 02/12/18 18:10 Urine Protein Negative mg/dL (<30 mg/dL) 02/12/18 18:10 Urine Glucose (UA) Negative mg/dL (NEGATIVE) 02/12/18 18:10 Urine Ketones Negative mg/dL (NEGATIVE) 02/12/18 18:10 Urine Blood Trace-intact (NEGATIVE) H 02/12/18 18:10 Urine Nitrate Negative (NEGATIVE) 02/12/18 18:10 Urine Bilirubin Negative (NEGATIVE) 02/12/18 18:10 Urine Urobilinogen 0.2 E.U./dL (<1 E.U./dL) 02/12/18 18:10 Ur Leukocyte Esterase Negative Jan/uL (NEGATIVE) 02/12/18 18:10 Urine RBC 0 - 2 /hpf (0-2) 02/12/18 18:10 Urine WBC 2 - 5 /hpf (0-6) 02/12/18 18:10 Ur Epithelial Cells 3 - 4 /hpf (0-5) 02/12/18 18:10 Urine Bacteria Few (NEG) 02/12/18 18:10 - Hospital Course Hospital Course: Patient is a 72yo female with past medical history of CAD s/p 2 stents, vertebral artery stenosis (complete occlusion), carotid stenosis, volvulus s/p repair who came to ED for near syncopal episode that lasted a few minutes. Patient has had several occurrences in the past. She is currently being followed by doctors at [facility] for these symptoms secondary to right vertebral artery stenosis. Of note, patient had recent stress test and echo at [facility], which were normal according to patient. In the ED, head CT showed mild chronic changes , but no acute abnormalities. CTA occlusion of the right vertebral artery along its entire cervical length as has been reported in the patient's history. This would appear to probably represent chronic long-standing occlusion. Left vertebral artery is patent along its entire length without stenosis. Unremarkable CTA of the brain. Moderate atherosclerotic narrowing of the right carotid bulb and proximal right ICA with estimated 70 percent luminal narrowing. Patient was admitted for evaluation for near syncopal episode and chest pain r/o ACS. Neuro was consulted and recommended dual antiplatelet therapy and outpatient follow up with Dr. Mekhi Espinoza. Cardio was consulted due to chest pain. Troponin was found to be elevated and patient was found to have a NSTEMI. Patient was taken to slab depiler operator where 1 SILVANA was placed in the circumflex artery due to 90-95% stenosis. Stent in the LAD was patent. Patient is to be on ASA and plavix for at least one year. Today, the patient was seen and examined at bedside. No acute overnight events. Near syncopal symptoms and chest pain had resolved. Patient was given prescriptions for her medications and advised to follow up with her non destructive evaluation manager and neurologist outpatient within 1 week. Patient was counselled on the risks of tobacco use and cessation was advised. Discharge Diagnosis - Near syncope 2/2 right vertebral artery stenosis - NSTEMI s/p stent - Tobacco abuse - History of CAD Discharge Exam - Head Exam Head Exam: NORMAL INSPECTION - Eye Exam Eye Exam: Normal appearance Pupil Exam: NORMAL ACCOMODATION - ENT Exam ENT Exam: Normal Exam - Neck Exam Neck exam: Normal Inspection - Respiratory Exam Respiratory Exam: Clear to PA & Lateral. absent: Rales, Rhonchi, Wheezes - Cardiovascular Exam Cardiovascular Exam: RRR, +S1, +S2. absent: Diastolic murmur, Gallop, Rubs, Systolic Murmur - GI/Abdominal Exam GI & Abdominal Exam: Soft. absent: Distended, Guarding, Rebound, Tenderness - Rectal Exam Rectal Exam: NORMAL INSPECTION - Extremities Exam Extremities exam: normal inspection - Back Exam Back exam: NORMAL INSPECTION - Neurological Exam Neurological exam: Alert, CN II-XII Intact, Oriented x3 - Psychiatric Exam Psychiatric exam: Normal Affect, Normal Mood - Skin Skin Exam: Dry, Intact, Normal Color, Warm Discharge Plan - Discharge Medications Prescriptions: Aspirin [Aspirin Chewable] 81 mg PO DAILY #30 chew Clopidogrel [Plavix] 75 mg PO DAILY #30 tab Metoprolol Tartrate [Lopressor] 25 mg PO BID #60 tab Nicotine 14 mg/24 hr [Nicoderm CQ] 1 each TD DAILY #10 patch - Follow Up Plan Condition: FAIR Disposition: HOME/ ROUTINE Instructions: Syncope (Fainting), Coronary Heart Disease, Coronary Angioplasty , Heart Healthy Diet, Quitting Smoking for Older Adults, Chest Pain (DC), Chest Pain (GEN) Additional Instructions: 1. Follow up with DR. Del Angel, non destructive evaluation manager, in 3 to 5 days. 2. Do not stop aspirin and plavix without consulting cardiology. 3. Follow up with neurology in [facility]. 4. Follow up with primary doctor for anxiety problem or make an appointment at [facility] at [address] [place] [address]. 5. If you do not have any primary care doctor, you can make an appointment at [facility]. Make appointment at [phone]. 6. Return to ED if symptoms worsen Referrals: [facility] [Outside] () [facility] at [facility] [Outside] Luis Antonio Del Angel MD [Staff Provider] - <Duglas Espinal - Last Filed: 02/14/18 16:13> Provider - Provider Date of Admission: 02/13/18 15:09 Attending physician: Shirin Uriostegui MD Hospital Course - Lab Results Lab Results: Most Recent Lab Values WBC 8.7 10^3/ul (4.5-11.0) D 02/14/18 05:30 RBC 4.28 10^6/uL (3.5-6.1) 02/14/18 05:30 Hgb 13.9 g/dL (12.0-16.0) 02/14/18 05:30 Hct 40.7 % (36.0-48.0) 02/14/18 05:30 MCV 95.1 fl (80.0-105.0) 02/14/18 05:30 MCH 32.5 pg (25.0-35.0) 02/14/18 05:30 MCHC 34.2 g/dl (31.0-37.0) 02/14/18 05:30 RDW 14.0 % (11.5-14.5) 02/14/18 05:30 Plt Count 296 10^3/uL (120.0-450.0) 02/14/18 05:30 MPV 9.3 fl (7.0-11.0) 02/14/18 05:30 Gran % 68.8 % (50.0-68.0) H 02/14/18 05:30 Lymph % (Auto) 21.7 % (22.0-35.0) L 02/14/18 05:30 [place] % (Auto) 7.7 % (1.0-6.0) H 02/14/18 05:30 Eos % (Auto) 1.3 % (1.5-5.0) L 02/14/18 05:30 Baso % (Auto) 0.5 % (0.0-3.0) 02/14/18 05:30 Gran # 5.95 (1.4-6.5) 02/14/18 05:30 Lymph # (Auto) 1.9 (1.2-3.4) 02/14/18 05:30 [place] # (Auto) 0.7 (0.1-0.6) H 02/14/18 05:30 Eos # (Auto) 0.1 (0.0-0.7) 02/14/18 05:30 Baso # (Auto) 0.04 K/mm3 (0.0-2.0) 02/14/18 05:30 PT 12.4 SECONDS (9.4-12.5) 02/12/18 12:00 INR 1.08 (0.93-1.08) 02/12/18 12:00 Sodium 138 mmol/L (132-148) 02/14/18 05:30 Potassium 3.9 mmol/L (3.6-5.0) 02/14/18 05:30 Chloride 107 mmol/L (98-107) 02/14/18 05:30 Carbon Dioxide 22 mmol/L (21-33) 02/14/18 05:30 Anion Gap 12 (10-20) 02/14/18 05:30 BUN 14 mg/dL (7-21) 02/14/18 05:30 Creatinine 0.8 mg/dl (0.7-1.2) 02/14/18 05:30 Est GFR ( Amer) > 60 02/14/18 05:30 Est GFR (Non-Af Amer) > 60 02/14/18 05:30 Random Glucose 94 mg/dL (70-110) 02/14/18 05:30 Hemoglobin A1c 5.7 % (4.2-6.5) 02/12/18 17:55 Calcium 9.1 mg/dL (8.4-10.5) 02/14/18 05:30 Phosphorus 3.2 mg/dL (2.5-4.5) 02/14/18 05:30 Magnesium 1.9 mg/dL (1.7-2.2) 02/14/18 05:30 Total Bilirubin 0.2 mg/dL (0.2-1.3) 02/14/18 05:30 AST 28 U/L (14-36) 02/14/18 05:30 ALT 26 U/L (7-56) 02/14/18 05:30 Alkaline Phosphatase 59 U/L (38-126) 02/14/18 05:30 Lactate Dehydrogenase 287 U/L (333-699) L 02/12/18 12:00 Total Creatine Kinase 51 U/L (35-230) 02/12/18 12:00 Troponin I 0.48 ng/mL H* 02/13/18 02:50 NT-Pro-B Natriuret Pep 445 pg/mL (0-450) 02/12/18 12:00 Total Protein 6.8 g/dL (5.8-8.3) 02/14/18 05:30 Albumin 3.9 g/dL (3.0-4.8) 02/14/18 05:30 Globulin 2.9 gm/dL 02/14/18 05:30 Albumin/Globulin Ratio 1.3 (1.1-1.8) 02/14/18 05:30 Triglycerides 66 mg/dL (35-160) 02/12/18 17:50 Cholesterol 121 mg/dL (130-200) L 02/12/18 17:50 LDL Cholesterol Direct 45 mg/dL (0-129) 02/12/18 17:50 HDL Cholesterol 60 mg/dL (29-60) 02/12/18 17:50 Lipase 38 U/L (23-300) 02/12/18 12:00 TSH 3rd Generation 1.04 mIU/mL (0.46-4.68) 02/12/18 17:55 Urine Color Yellow (YELLOW) 02/12/18 18:10 Urine Appearance Clear (CLEAR) 02/12/18 18:10 Urine pH 6.0 (4.7-8.0) 02/12/18 18:10 Ur Specific [place] 1.010 (1.005-1.035) 02/12/18 18:10 Urine Protein Negative mg/dL (<30 mg/dL) 02/12/18 18:10 Urine Glucose (UA) Negative mg/dL (NEGATIVE) 02/12/18 18:10 Urine Ketones Negative mg/dL (NEGATIVE) 02/12/18 18:10 Urine Blood Trace-intact (NEGATIVE) H 02/12/18 18:10 Urine Nitrate Negative (NEGATIVE) 02/12/18 18:10 Urine Bilirubin Negative (NEGATIVE) 02/12/18 18:10 Urine Urobilinogen 0.2 E.U./dL (<1 E.U./dL) 02/12/18 18:10 Ur Leukocyte Esterase Negative Jan/uL (NEGATIVE) 02/12/18 18:10 Urine RBC 0 - 2 /hpf (0-2) 02/12/18 18:10 Urine WBC 2 - 5 /hpf (0-6) 02/12/18 18:10 Ur Epithelial Cells 3 - 4 /hpf (0-5) 02/12/18 18:10 Urine Bacteria Few (NEG) 02/12/18 18:10 Attending/Attestation - Attestation I have personally seen and examined this patient.: Yes I have fully participated in the care of the patient.: Yes I have reviewed all pertinent clinical information, including history, physical exam and plan: Yes Notes (Text): 02/14/18 15:28 attending note; Patient seen and examined with resident. This is a 72 year old female with past medical history of CAD s/p 2 stents, vertebral artery stenosis (complete occlusion), carotid stenosis, volvulus s/p repair who was admitted for near syncopal episode which can be secondary to vertebral artery disease. CT head is negative and CTA showed vertebral occlusion unchanged. Patient follows up with neurologist at [facility]. Non-ST elevation MD; status post circumflex stent placement. Patient needs aspirin and Plavix for atleast 1 year. continue Lipitor and metoprolol. Case discussed with cardiology in detail. Lab results/ cath Report and radiological findings given the patient.The patient will follow-up with non destructive evaluation manager and neurologist at [facility]. active smoking; smoking cessation is strongly advised.
--- NOTE | 2018-02-14 08:00 | CP.PCM.PN ---
Subjective - Date & Time of Evaluation Date of Evaluation: 02/14/18 Time of Evaluation: 06:30 - Subjective Subjective: Sleeping, easily awaken, denies chest pain, denies shortness of breath Reason for consult and follow up:Cardiac evaluation, non-ST segment MA, chest pain,syncopal episode, history of coronary artery disease. Seen and examined by me and Dr. Del Angel Objective - Vital Signs/Intake and Output Vital Signs (last 24 hours): Temp Pulse Resp BP Pulse Ox 97.8 F 65 20 129/77 97 02/14/18 06:00 02/14/18 06:00 02/14/18 06:00 02/14/18 06:00 02/14/18 06:00 - Medications Medications: Current Medications Aspirin (Aspirin Chewable) 81 mg PO DAILY [facility] Last Admin: 02/13/18 10:43 Dose: Not Given Atorvastatin Calcium (Lipitor) 40 mg PO DIN [facility] Last Admin: 02/13/18 17:04 Dose: 40 mg Clopidogrel Bisulfate (Plavix) 75 mg PO DAILY [facility] Ibuprofen (Motrin Tab) 600 mg PO Q6H PRN PRN Reason: Pain, moderate (4-7) Ketorolac Tromethamine (Toradol) 15 mg IVP Q8H PRN PRN Reason: Pain, severe (8-10) Last Admin: 02/13/18 21:59 Dose: 15 mg Metoprolol Tartrate (Lopressor) 25 mg PO BID [facility] Last Admin: 02/13/18 17:04 Dose: 25 mg Nicotine (Nicoderm Cq) 1 patch TD DAILY [facility] Last Admin: 02/13/18 18:52 Dose: 1 patch Pantoprazole Sodium (Protonix Inj) 40 mg IVP DAILY [facility] Last Admin: 02/13/18 10:44 Dose: Not Given - Labs Labs: 02/14/18 05:30 02/14/18 05:30 PT 12.4 SECONDS (9.4-12.5) 02/12/18 12:00 INR 1.08 (0.93-1.08) 02/12/18 12:00 - Constitutional Appears: No Acute Distress - Eye Exam Eye Exam: Normal appearance Pupil Exam: NORMAL ACCOMODATION - ENT Exam ENT Exam: Mucous Membranes Moist - Neck Exam Neck Exam: Normal Inspection - Respiratory Exam Respiratory Exam: Clear to Ausculation Bilateral, NORMAL BREATHING PATTERN - Cardiovascular Exam Cardiovascular Exam: REGULAR RHYTHM, +S1, +S2 - GI/Abdominal Exam GI & Abdominal Exam: Soft, Normal Bowel Sounds - Extremities Exam Extremities Exam: Normal Capillary Refill - Neurological Exam Neurological Exam: Alert, Awake, Oriented x3 - Psychiatric Exam Psychiatric exam: Normal Affect, Normal Mood - Skin Skin Exam: Intact, Normal Color, Warm Assessment and Plan - Assessment and Plan (Free Text) Assessment: A 72 year old who came to the Er due to near syncopal episode with some chest pain. In ER found to have non-STEMI, positive troponin, normal EKG. History of coronary artery disease, post stents, vertebral artery stenosis, carotid stenosis,hyperlipidemia, smoker. Cardiac cath done yesterday by Dr. Del Angel and distal dominant Cx 90-95% occluded and stented,patent stent LAD,RCA moderate disease non dominant. Plan: Post cardiac cath and stenting of Cx Mandatory ASA and plavix for one year Stable cardiac standpoint Chest painfree Continue current medications Continue current treatment May discharge today Follow up in the office 1-2 weeks Will follow up Plan and treatment discussed with Dr. Del Angel
[2018-02-14 09:26] VITALS: BP 146/66
[2018-02-14 12:13] VITALS: PULSE 63
--- NOTE | 2018-02-14 18:48 | CARD ---
APPROVED REPORT EKG Measurement Heart [id number] <Conclusion> Sinus bradycardia Otherwise normal ECG
[2018-02-15] MEDS ORDERED: Pantoprazole 40 mg EC Tab PO SCH (07:30)
--- NOTE | 2018-02-15 19:29 | CARD ---
APPROVED REPORT EKG Measurement Heart [id number] <Conclusion> Normal sinus rhythm Normal ECG
== END 2018-02-14 12:28 | disposition home or self-care (01) | DRG 247 ==
LOC: ED 11:24 → ERH 15:14 → 2RSO 16:51 → 2RNO 02-13 11:15 → OBSVTOIN 02-13 15:09
PROVIDERS: ADMIT Internal Medicine; ATTEND Internal Medicine
PROC: 027034Z Dilation of Coronary Artery, One Artery with Drug-eluting Intraluminal Device, Percutaneous Approach (ICD-10-PCS; principal; 2018-02-13)
PROC: 4A023N7 Measurement of Cardiac Sampling and Pressure, Left Heart, Percutaneous Approach (ICD-10-PCS; 2018-02-13)
PROC: B2151ZZ Fluoroscopy of Left Heart using Low Osmolar Contrast (ICD-10-PCS; 2018-02-13)
PROC: B2111ZZ Fluoroscopy of Multiple Coronary Arteries using Low Osmolar Contrast (ICD-10-PCS; 2018-02-13)
PROC: 3E033PZ Introduction of Platelet Inhibitor into Peripheral Vein, Percutaneous Approach (ICD-10-PCS; 2018-02-13)
PROC: 3E073KZ Introduction of Other Diagnostic Substance into Coronary Artery, Percutaneous Approach (ICD-10-PCS; 2018-02-13)
DX: I21.4 Non-ST elevation (NSTEMI) myocardial infarction (principal); I65.01 Occlusion and stenosis of right vertebral artery; I25.110 Atherosclerotic heart disease of native coronary artery with unstable angina pectoris; I65.21 Occlusion and stenosis of right carotid artery; F17.210 Nicotine dependence, cigarettes, uncomplicated; H53.8 Other visual disturbances; I10 Essential (primary) hypertension; I73.9 Peripheral vascular disease, unspecified; F41.9 Anxiety disorder, unspecified; E78.5 Hyperlipidemia, unspecified; Z95.5 Presence of coronary angioplasty implant and graft

== ENCOUNTER 2018-02-28 11:10 | Observation (INO) | payer OTHER, MEDICARE ==
[2018-02-28 11:20] VITALS: BMI 19.8
[2018-02-28] MEDS ORDERED: Morphine 2 mg/ml ISec IVP STA ×3 (11:25→17:53)
--- NOTE | 2018-02-28 11:54 | ED PDOC ---
Arrival/HPI - General Chief Complaint: Chest Pain Time Seen by Provider: 02/28/18 11:12 Historian: Patient, Spouse - History of Present Illness Narrative History of Present Illness (Text): you were treated in the ED today for hx of vertebral artery stenosis, carotid artery stenosis, heart disease with x2 stents placed 02/13/18 and discharged after that in early February 2018 on aspirin/plavix which you took this morning and now having left sided chest pain/squeezing which goes across your chest and up your right neck and took nitroglycerin and otherwise without any nausea/vomiting /headache/dizziness/difficulty breathing/abdomen pain/numbness/tingling/loss of limb function/pain with urination. Time/Duration: 1 hour Symptom Onset: Gradual Symptom Course: Improving Quality: Aching Severity Level: 3 Activities at Onset: Rest Context: Sitting Past Medical History - Provider Review Nursing Documentation Reviewed: Yes - Travel History Have you recently traveled outside [place] w/in the past 3 mons?: No - Reproductive Menopause: Yes - Cardiac Hx Cardiac Disorders: Yes Hx Hypertension: Yes - Neurological Other/Comment: L vertebral stenosis - HEENT Hx Cataracts: Yes (ou) - Musculoskeletal/Rheumatological Hx Falls: No - Psychiatric Hx Anxiety: Yes Hx Substance Use: No - Surgical History Hx Appendectomy: Yes Hx Coronary Stent: Yes (x3) Hx Orthopedic Surgery: Yes (Back SX) Other/Comment: Breast implants, sm intestine SX - Anesthesia Hx Anesthesia: Yes Hx Anesthesia Reactions: No Hx Malignant Hyperthermia: No Family/Social History - Physician Review Nursing Documentation Reviewed: Yes Family/Social History: No Known Family HX Smoking Status: Light Smoker < 10 Cigarettes Daily Hx Alcohol Use: No Hx Substance Use: No Allergies/Home Meds Allergies/Adverse Reactions: Allergies No Known Allergies Allergy (Verified 02/12/18 11:31) Review of Systems - Review of Systems Constitutional: Normal Eyes: Normal ENT: Normal Respiratory: Normal Cardiovascular: Chest Pain Gastrointestinal: Normal Genitourinary Female: Normal Musculoskeletal: Normal Skin: Normal Neurological: Normal Endocrine: Normal Hemo/Lymphatic: Normal Physical Exam Vital Signs Reviewed: Yes Vital Signs Temp Pulse Resp BP Pulse Ox 02/28/18 13:11 63 18 131/51 L 97 02/28/18 11:24 98.0 F 60 18 130/52 L 97 Temperature: Afebrile Blood Pressure: Hypertensive Pulse: Regular Respiratory Rate: Normal Appearance: Positive for: Well-Appearing, Non-Toxic, Comfortable Pain Distress: None Mental Status: Positive for: Alert and Oriented X 3 - Systems Exam Head: Present: Atraumatic, Normocephalic Pupils: Present: PERRL Extroacular Muscles: Present: EOMI Conjunctiva: Present: Normal Ears: Present: Normal Mouth: Present: Moist Mucous Membranes Pharnyx: Present: Normal Nose (External): Present: Atraumatic Nose (Internal): Present: Normal Inspection Neck: Present: Normal Range of Motion Respiratory/Chest: Present: Clear to Auscultation, Good Air Exchange Cardiovascular: Present: Regular Rate and Rhythm Abdomen: No: Tenderness, Distention, Normal Bowel Sounds, Peritoneal Signs, Rebound, Guarding, McBurney's Point Tender, Rovsing's Sign Present, Hernias, Feeding Tubes, Ostomy Tubes, Mass/Organomegaly, Scars, Other Back: Present: Normal Inspection Upper Extremity: Present: Normal Inspection Lower Extremity: Present: Normal Inspection Neurological: Present: GCS=15, CN II-XII Intact, Speech Normal, Motor Func Grossly Intact Skin: Present: Warm, Normal Color Psychiatric: Present: Alert, Oriented x 3, Normal Insight, Normal Concentration Medical Decision Making ED Course and Treatment: ou were treated in the ED today for hx of vertebral artery stenosis, carotid artery stenosis, heart disease with x2 stents placed 02/13/18 and discharged after that in early February 2018 on aspirin/plavix which you took this morning and now having left sided chest pain/squeezing which goes across your chest and up your right neck and took nitroglycerin and otherwise without any nausea/vomiting /headache/dizziness/difficulty breathing/abdomen pain/numbness/tingling/loss of limb function/pain with urination/recent travel/prior blood clots/prior cancer history/hormonal use. You were otherwise breathing easily, pink moist lips, smiling and talking with your , good strength/sensation, alert/oriented, walking easily, clear lungs, no abdomen tenderness, no fever temp 98 stable heart rate 60, stable breathing rate 18, excellent oxygen level 97% room air, elevated blood pressure 130/52which we recommend repeat in 2-3 days primary care office to determine further treatment, you have blood tests no infection count 8, stable blood level hemoglobin 12/platelets 306, stable chemistry, heart blood test negative less than 0.01, heart failure test negative 125, chest xray radiology no acute findings, ECG normal sinus rhythm similar to , morphine, observation done in the ED with improvement, counselled to stay in the hospital for further observation/care. Report Date : 02/28/2018 13:17:28 Procedure: Chest xray Dictator : Francisco Javier Garcia MD IMPRESSION: No active disease. paged Dr. Del Angel. 02/28/18 13:23 02/28/18 15:11 d/w Dr. Woodward who accepted the patient and stated can consult Dr. Lagos if Dr. Del Angel unavailable at this time. Reassessment Condition: Re-examined, Improved - Lab Interpretations Lab Results: 02/28/18 11:51 02/28/18 11:51 Lab Results 02/28/18 11:51: Sodium 143, Potassium 4.4, Chloride 109 H, Carbon Dioxide 24, Anion Gap 15, BUN 13, Creatinine 0.7, Est GFR ( Amer) > 60, Est GFR (Non- Af Amer) > 60, Random Glucose 89, Calcium 9.9, Magnesium 1.9, Total Bilirubin 0.2, AST 22, ALT 20, Alkaline Phosphatase 61, Lactate Dehydrogenase 315 L, Total Creatine Kinase 42, Troponin I < 0.01 D, NT-Pro-B Natriuret Pep 125, Total Protein 7.0, Albumin 3.9, Globulin 3.1, Albumin/Globulin Ratio 1.3 02/28/18 11:51: PT 12.2, INR 1.06, APTT 31.3 02/28/18 11:51: WBC 8.4, RBC 3.86, Hgb 12.6, Hct 36.5, MCV 94.6, MCH 32.6, MCHC 34.5, RDW 13.9, Plt Count 306, MPV 9.0, Gran % 71.0 H, Lymph % (Auto) 20.7 L, [place] % (Auto) 6.1 H, Eos % (Auto) 1.7, Baso % (Auto) 0.5, Gran # 5.97, Lymph # ( Auto) 1.7, [place] # (Auto) 0.5, Eos # (Auto) 0.1, Baso # (Auto) 0.04 I have reviewed the lab results: Yes - RAD Interpretation Radiology Orders: 02/28/18 11:25 CHEST PORTABLE [RAD] Stat Promotion Producer: ED Physician (cxr mild vascular markings) - EKG Interpretation Interpreted by ED Physician: Yes (NSR) Type: 12 lead EKG Comparison: Similar to previous EKG (02/14/18) - Medication Orders Current Medication Orders: Sodium Chloride (Sodium Chloride 0.9%) 1,000 mls @ 100 mls/hr IV .Q10H HEATHER Last Admin: 02/28/18 14:02 Dose: 100 mls/hr eMAR Start Stop Document 02/28/18 14:02 [facility] (Rec: 02/28/18 14:02 [id number] Intravenous Solution Start Date 02/28/18 Start Time 14:02 Discontinued Medications Morphine Sulfate (Morphine) 2 mg IVP STAT STA Stop: 02/28/18 11:26 Last Admin: 02/28/18 11:46 Dose: 2 mg MAR Pain Assessment Document 02/28/18 11:46 [facility] (Rec: 02/28/18 11:47 [id number] Pain Reassessment Is this a pain reassessment? No IVP Administration Document 02/28/18 11:46 [facility] (Rec: 02/28/18 11:47 [id number] Charges for Administration # of IVP Administrations 1 Morphine Sulfate (Morphine) 2 mg IVP STAT STA Stop: 02/28/18 13:53 Last Admin: 02/28/18 14:02 Dose: 2 mg MAR Pain Assessment Document 02/28/18 14:02 [facility] (Rec: 02/28/18 14:02 [id number] Pain Reassessment Is this a pain reassessment? Yes Sleep Is patient sleeping during reassessment? No Presence of Pain Presence of Pain Yes IVP Administration Document 02/28/18 14:02 [facility] (Rec: 02/28/18 14:02 [id number][facility] Charges for Administration # of IVP Administrations 2 Ondansetron HCl (Zofran Inj) 4 mg IVP STAT STA Stop: 02/28/18 13:53 Last Admin: 02/28/18 14:02 Dose: 4 mg IVP Administration Document 02/28/18 14:02 [facility] (Rec: 02/28/18 14:02 [facility]-[id number]) Charges for Administration # of IVP Administrations 1 Disposition/Present on Arrival - Present on Arrival Any Indicators Present on Arrival: No History of DVT/PE: No History of Uncontrolled Diabetes: No Urinary Catheter: No History of Decub. Ulcer: No History Surgical Site Infection Following: None - Disposition Have Diagnosis and Disposition been Completed?: Yes Diagnosis: Chest pain Disposition: HOSPITALIZED Disposition Time: 15:13 Patient Plan: Telemetry Condition: STABLE Discharge Instructions (ExitCare): Chest Pain (ED) Referrals: Kayleigh Jackson, [Non-Staff] - Follow up with primary Forms: [employer] (German)
[2018-02-28 11:55] LABS: BASO # 0.04 K/mm3 (0.0-2.0); BASO % 0.5 % (0.0-3.0); EOS # 0.1 (0.0-0.7); EOS % 1.7 % (1.5-5.0); GRAN # 5.97 (1.4-6.5); HEMOGLOBIN 12.6 g/dL (12.0-16.0); LYMPH # 1.7 (1.2-3.4); LYMPH % 20.7 % (22.0-35.0); MEAN CELL VOLUME 94.6 fl (80.0-105.0); MEAN CORPUSCULAR HEMOGLOBIN 32.6 pg (25.0-35.0); MEAN CORPUSCULAR HGB CONC 34.5 g/dl (31.0-37.0); MONO # 0.5 (0.1-0.6); MONO % 6.1 % (1.0-6.0); RBC 3.86 10^6/uL (3.5-6.1); RED CELL DISTRIBUTION WIDTH 13.9 % (11.5-14.5); WHITE BLOOD COUNT 8.4 10^3/ul (4.5-11.0)
[2018-02-28 12:07] LABS: PROTHROMBIN TIME 12.2 SECONDS (9.4-12.5)
[2018-02-28 12:08] LABS: INR 1.06 (0.93-1.08); PARTIAL THROMBOPLASTIN TIME 31.3 Seconds (25.1-36.5)
[2018-02-28 12:10] LABS: ALB/GLOB RATIO 1.3 (1.1-1.8); ALBUMIN 3.9 g/dL (3.0-4.8); ALT/SGPT 20 U/L (7-56); AST/SGOT 22 U/L (14-36); BLOOD UREA NITROGEN 13 mg/dL (7-21); CALCIUM 9.9 mg/dL (8.4-10.5); GFR AFRICAN-AMERICAN > 60; GFR NON-AFRICAN AMERICAN > 60
[2018-02-28 12:19] LABS: B-TYPE NATRIURETIC PEPTIDE 125 pg/mL (0-450); TROPONIN I < 0.01 ng/mL
[2018-02-28] MEDS ORDERED: Sodium Chloride 0.9% 1,000 ML IV SCH ×2 (12:30→19:22)
--- NOTE | 2018-02-28 13:19 | RAD ---
HISTORY: 72yoF, with chest pain COMPARISON: 02/12/2018 FINDINGS: LUNGS: No active pulmonary disease. PLEURA: No significant pleural effusion identified, no pneumothorax apparent. CARDIOVASCULAR: Normal. OSSEOUS STRUCTURES: No significant abnormalities. VISUALIZED UPPER ABDOMEN: Normal. OTHER FINDINGS: None. IMPRESSION: No active disease.
--- NOTE | 2018-02-28 14:58 | CARD ---
APPROVED REPORT EKG Measurement Heart [id number] <Conclusion> Normal sinus rhythm Normal ECG
[2018-02-28 15:17] LABS: URINE APPEARANCE CLEAR (CLEAR); URINE BILIRUBIN NEGATIVE (NEGATIVE); URINE BLOOD TRACE-LYSED (NEGATIVE); URINE COLOR YELLOW (YELLOW); URINE GLUCOSE (UA) NEGATIVE (NEGATIVE); URINE LEUKOCYTE ESTERASE NEGATIVE Leu/uL (NEGATIVE); URINE PROTEIN NEGATIVE mg/dL (<30 mg/dL); URINE UROBILINOGEN 0.2 E.U./dL (<1 E.U./dL)
[2018-02-28 15:26] LABS: URINE AMORPHOUS SEDIMENT FEW; URINE BACTERIA MANY (NEG); URINE WBC 0 - 2 /hpf (0-6)
[2018-02-28] MEDS ORDERED: Morphine 2 mg/ml ISec IVP PRN (18:59)
[2018-02-28] MEDS ORDERED: Pneumococcal 23-Valent Vaccine IM ONE (22:58)
--- NOTE | 2018-03-01 04:48 | HP ---
HISTORY OF PRESENT ILLNESS: I was called by the ER today because she came in with a history of chest pain. She has a history of vertebral artery stenosis on the right, carotid artery stenosis, heart disease x2 stents, discharged in 02/2018 on aspirin and Plavix. chest, to her neck. She took nitroglycerin which helped her. No nausea. PAST MEDICAL HISTORY: She has hypertension, history of left vertebral stenosis, right vertebral stenosis, anxiety, appendectomy, coronary stents x3, back surgery, breast implants, small intestinal surgery. FAMILY HISTORY: Hypertension in the family. SOCIAL HISTORY: She still smokes. No alcohol, no drugs. ALLERGIES: NO KNOWN DRUG ALLERGIES. MEDICATIONS: She is taking aspirin, Lipitor, metoprolol, Plavix, and she gets Zofran every now and then. REVIEW OF SYSTEMS: No acute vision changes or hearing changes. No sore throat. No neck pain. No shortness of breath or cough. There is chest pain. No palpitations. There is pressure and tightness. There is a little bit of nauseous. No vomiting, constipation or diarrhea. No problems urinating. No arm pains or leg pains. No dizziness. No numbness or tingling. No skin issues. PHYSICAL EXAMINATION: GENERAL: At this time, she is well appearing, nontoxic, comfortable in bed, alert and oriented x3. VITAL SIGNS: She has a 98 temp, 68 pulse, 18 respiratory rate, 130/52 blood pressure, 97% O2 saturation on room air. HEENT: Extraocular muscles are intact. Pupils equally reactive to light. Throat is moist. NECK: Supple. No apparent bruits. HEART: Regular rate. ABDOMEN: Soft, nontender, positive bowel sounds. No guarding or rebound. No CVA tenderness. EXTREMITIES: Have no edema. NEUROLOGICAL: GCS is 15. Cranial nerves II through XII are grossly intact. Speech is normal. Alert and oriented x3. SKIN: Warm and dry. No apparent ulcers or rashes. LYMPHS: Thyroid midline. No palpable lymphadenopathy appreciated. LABORATORY DATA: She had multiple tests. Sodium 143, potassium 4.4, BUN 13, creatinine 0.7, GFR is greater than 60, sugar is 89, calcium is 8.9, magnesium 1.9, total bili is 0.2, AST is 22, ALT is 20, alkaline phosphatase 61, lactate dehydrogenase is 315, total creatine kinase is 42. Troponin I first one is less than 0.01. BNP is 125, total protein 7, albumin is 3.9, globulin 3.1. Urine was positive for UTI. INR is 1.06. White count is 8.4, hemoglobin 12.6, hematocrit 36.5, platelets of 306. Chest x-ray was clear. An EKG, with normal sinus rhythm. ASSESSMENT AND PLAN: She will have a consult with Cardiology. She will have night for sleep. Put her back on her regular medications. Hopefully, if she does well, we can discharge her home tomorrow. She is on observation. She is here for chest pain with first troponin being negative. Chest pain, urinary tract infection, carotid artery stenosis. Nicolas Woodward DO MTDNarciso
[2018-03-01 05:54] VITALS: BP 152/62; PULSE 69; RESP 20; TEMP 98.5; O2SAT 96
[2018-03-01 06:33] LABS: HEMOGLOBIN 11.9 g/dL (12.0-16.0); MEAN CELL VOLUME 95.7 fl (80.0-105.0); MEAN CORPUSCULAR HEMOGLOBIN 32.1 pg (25.0-35.0); MEAN CORPUSCULAR HGB CONC 33.5 g/dl (31.0-37.0); RBC 3.71 10^6/uL (3.5-6.1)
[2018-03-01 06:39] LABS: ALB/GLOB RATIO 1.2 (1.1-1.8); ALBUMIN 3.5 g/dL (3.0-4.8); ALT/SGPT 20 U/L (7-56); AST/SGOT 15 U/L (14-36); BLOOD UREA NITROGEN 12 mg/dL (7-21); CALCIUM 8.8 mg/dL (8.4-10.5); GFR AFRICAN-AMERICAN > 60; GFR NON-AFRICAN AMERICAN > 60
[2018-03-01 06:47] LABS: TROPONIN I < 0.01 ng/mL
--- NOTE | 2018-03-01 20:53 | CON ---
DATE: 03/01/2018 CONSULTING SERVICE: Cardiology. REASON FOR CONSULTATION: Chest pain; coronary artery disease, status post PTCA recently. BRIEF CLINICAL HISTORY: This is a 72-year-old female with past medical history significant for carotid artery diseases vertebral artery stenosis came in with near syncope and ACS, non-STEMI on 02/13/2018, subsequently underwent a cardiac catheterization and stenting of the mid circumflex, dominant circumflex 90% to 95% stenosis and prior to that, the patient had stent in mid LAD, moderate disease of nondominant RCA, successful PTCA with a drug-eluting stent was done dated 02/13/2018, ejection fraction of 65% , active tobacco abuse, complains that the patient was mopping floor, chest pain, took rest, did not get better, took nitroglycerin, did not improve, later on improved itself. Denies any episode of further chest pain or dyspnea on exertion, chest pain with exertion, so far the troponin remains negative. EKG is essentially benign. No acute ST-T changes noted. PAST MEDICAL HISTORY: Significant for coronary artery disease, status post two stents in LAD in the past and most recently 02/13/2018, the patient had a stent in the circumflex and mid dominant circumflex when the patient presented with acute coronary syndrome and syncope, history of vertebral artery stenosis, history of complete occlusion, history of carotid artery stenosis being followed at [facility]. PAST SURGICAL HISTORY: Significant for volvulus repair, history of multiple back surgery, history of appendectomy, and most recently admission, history of cardiac catheterization with stenting of circumflex on 02/13/2018. SOCIAL HISTORY: Active tobacco abuse, used to smoke 2 pack a day, says that cut down to half a pack a day. Denies any history of alcohol abuse. Denies any history of substance abuse. Lives with . CURRENT MEDICATIONS: The patient is taking at home nicotine patch, metoprolol tartrate 25 mg twice a day, Plavix 75 mg daily, aspirin 81 mg daily, atorvastatin 40 mg daily. ALLERGIES: NO KNOWN DRUG ALLERGIES. REVIEW OF SYSTEMS: As per HPI. PHYSICAL EXAMINATION: As follows: VITAL SIGNS: Temperature afebrile, heart rate 69, blood pressure 115/62. HEENT: PERRLA. Extraocular muscles intact. NECK: Supple. No carotid bruit or thyromegaly. CHEST: Clear to auscultation. HEART: S1 and S2 regular. ABDOMEN: Soft. EXTREMITIES: Clubbing and cyanosis negative. LABORATORY DATA: Blood workup as follows: WBC 8, hemoglobin 11.9, hematocrit 35.5, platelet count 295. Chemistry shows sodium 144, potassium 4.2, chloride 101, carbon dioxide 23, anion gap of 14, BUN 12, creatinine 0.7, troponin 0.01 x4 negative. EKG shows normal sinus, no acute ST-T changes noted, essentially normal EKG, heart rate 61. IMPRESSION: Atypical chest pain, history of multiple stents, history of stent in left anterior descending 2 years ago and history of stent in the circumflex 02/13/2018, history of vertebral artery stenosis being followed at [facility], history of hyperlipidemia. RECOMMENDATIONS: Continue baby aspirin, continue Plavix, continue atorvastatin, continue Nicoderm patch. Follow up in [facility] for vertebral artery stenosis, no evidence of acute OK at this time. No evidence of angina. Options given to the patient to follow up with me or Cardiology; otherwise go to [facility]. We will follow with you. Thank you Dr. Woodward for providing us the opportunity in taking care of Zahraa Johnson. Luis Antonio Del Angel MD MTDNarciso
--- NOTE | 2018-03-02 04:53 | DS ---
SUBJECTIVE: Zahraa slept well last night. She has no more chest pain. She is comfortable. She is hungry. She is in good spirits today. She wants to go home. She came in for chest pain. She has been having labs checked, waiting for Cardio to see her. She is on aspirin, Lipitor, Lopressor. She has been on Nicoderm patch, Plavix, IV fluids, Xanax, Zofran, and Macrobid, which is urinary tract infection antibiotic. PHYSICAL EXAMINATION: VITAL SIGNS: She has a 98.5 temperature, 67 pulse, 152/62 blood pressure, 20 respiratory rate, 96% O2 sat on room air. HEENT: Head is atraumatic, normocephalic. Throat is moist. NECK: Supple. HEART: Regular rate. LUNGS: Decreased breath sounds, but clear to auscultation. ABDOMEN: Soft. EXTREMITIES: No edema. LABORATORY DATA: She has 8 white count, 11.9 hemoglobin, 35.5 hematocrit with a 295 platelets. Sodium 144, potassium is 4.2, BUN 12, creatinine 0.7, GFR is greater than 60, sugar is 93, calcium is 8.8, total bili is 0.1. AST is 15, ALT is 20, alk phos 54. Troponins are less than 0.01, total protein is 6.2. She has positive UTI. ASSESSMENT AND PLAN: Chest pain went away. Her symptoms went away. She will be discharged this morning after the Cardiology sees her. They can schedule an outpatient stress test. She will be on her same medications from home, which is Plavix, Lopressor, Lipitor and aspirin. I will add Macrobid 100 mg twice a day for 7 days. She is to quit smoking, eat a healthier low-salt diet. I would like to see her in the office in about a week. Nicolas Woodward DO
== END 2018-03-01 11:24 | disposition home or self-care (01) ==
LOC: ED 11:10 → ERH 15:10 → 2RNO 17:10
PROVIDERS: ADMIT Family Medicine; ATTEND Family Medicine
DX: R07.89 Other chest pain (principal); N39.0 Urinary tract infection, site not specified; I10 Essential (primary) hypertension; I25.10 Atherosclerotic heart disease of native coronary artery without angina pectoris; I65.29 Occlusion and stenosis of unspecified carotid artery; I25.82 Chronic total occlusion of coronary artery; I65.09 Occlusion and stenosis of unspecified vertebral artery; E78.5 Hyperlipidemia, unspecified; I25.2 Old myocardial infarction; F17.210 Nicotine dependence, cigarettes, uncomplicated; Z95.5 Presence of coronary angioplasty implant and graft; Z82.49 Family history of ischemic heart disease and other diseases of the circulatory system; Z98.82 Breast implant status; Z79.82 Long term (current) use of aspirin; F41.9 Anxiety disorder, unspecified
CPT/HCPCS: 36415; 71045; 80053; 81001; 82550; 83615; 83735; 83880; 84484; 85025; 85027; 85610; 85730; 87086; 87181; 93005; 96374; 96375; 96376; 99285; G0378; J2270; J2405; J7040